=== PATIENT | male | born 1960 | race Caucasian/White ===

== ENCOUNTER 2023-07-18 15:27 | Outpatient (OUT) | payer OTHER, SELFPAY ==
[2023-07-18 16:47] LABS: Prostate Specific Antigen Dx 2.05 ng/mL (<=4.00)
== END 2023-07-18 15:28 | disposition home or self-care (01) ==
LOC: LAB 15:31
PROVIDERS: PCP Family Medicine; Visit Provider Urology
DX: C61 Malignant neoplasm of prostate (principal); N40.1 Benign prostatic hyperplasia with lower urinary tract symptoms
CPT/HCPCS: 36415; 84153

== ENCOUNTER 2024-03-30 12:50 | Outpatient (OUT) | payer OTHER, SELFPAY ==
--- OUTSIDE RECORDS SUMMARY | 2024-03-30 13:15 | XMS_ITS | CCD ---
Author Organization [facility] CliniSymd Care Team Providers Care Lens Engraver Name Role Phone PHYSICIAN, DEFAULT Unavailable Unavailable PHYSICIAN, DEFAULT Unavailable Unavailable Gertrudis Holloway Unavailable DO Jonh Nice Primary Care Provider [phone] MD Joe Langston Attending Provider Joe Langston Unavailable [phone] ANDREW, DR KRISHNA Gomes Attending Unavailable ANDREW, DR KRISHNA Gomes Admitting Unavailable ARLET, DR MCFADDEN Primary Care Unavailable ANDREW, DR KRISHNA Gomes Consulting Unavailable RIA, DR ALECIA Gomes Consulting Unavailable MESFIN HALEY Consulting Unavailable ARMAND, ZENAIDA Attending Unavailable ARMAND, ZENAIDA Admitting Unavailable ARMAND, ZENAIDA Consulting Unavailable ARLET, DR MCFADDEN Primary Care Unavailable ANDREW, DR KRISHNA Gomes Attending Unavailable ANDREW, DR KRISHNA Gomes Admitting Unavailable ARLET, DR MCFADDEN Primary Care Unavailable ANDREW, DR KRISHNA Gomes Consulting Unavailable DO Jonh Nice Primary Care Provider [phone] MD Joe Langston Attending Provider MD Sg Acosta Attending Provider [phone] NEFTALI Holloway Attending Provider Joe Langston Admitting UnavailJoe Larson Attending UnavailJonh Parr Primary Care Unavailable Joe Langston Admitting UnavailJoe Larson Attending UnavailJonh Parr Primary Care Unavailable Sg Acosta Admpearl Unavailable Sg Acosta Attending Unavailable Jonh Nice Primary Care Unavailable Gertrudis Holloway Admitting Unavailable Gertrudis Holloway Attending Unavailable Jonh Nice Primary Care Unavailable Jonh Nice Primary Care Physician [phone] JONH NICE Primary Care Physician Sg ACOSTA Attending Unavailable Sg ACOSTA Attending Unavailable Clifford Doss Admitting Unavailable Clifford Doss Attending Unavailable Clifford Doss Attending Unavailable Clifford Doss Attending Unavailable Clifford Doss Attending Unavailable Allergies Allergy Classification Reported Allergen(s) Allergy Type Date of Onset Reaction(s) Facility (8 sources) Penicillin G Benzathine; Translations: [Penicillin G] Drug allergy anaphylaxis, Unknown (qualifier value) [facility] (1 source) Penicillins Drug allergy (disorder) [facility] (1 source) Penicillins Drug allergy (disorder) 0 [facility] Medications Current Medications Medication Drug Class(es) Dates Sig (Normalized) Sig (Original) ciprofloxacin 500 mg oral tablet (4 sources) Quinolone Antimicrobial Start: 07-24-2019 take 500 mg by mouth twice daily Ciprofloxacin Hcl Active 500 MG PO Twice daily July 24, 2019 1:00am Compression stockings, 20-30mmHg, thigh 20-30mmHg (4 sources) Start: 06-06-2022 Compression stockings, 20-30mmHg, thigh 20-30mmHg externally daily as directed for 90 days May, Active lisinopril 20 mg oral tablet (11 sources) Angiotensin Converting Enzyme Inhibitor Start: 08-12-2023 take 1 tablet by mouth once daily lisinopril 20 mg Tab 20 mg, Oral, Daily, # 90 EA, Refills(s) 1, [id number], 177, cm, 08/12/23 15:41:00 EST, Height/Length Dosing, 97.9, kg, 08/12/23 15:41:00 EST, Weight Dosing Start Date: 08/12/23 Status: Ordered Start: 07-24-2019 take 20 mg by mouth once daily Lisinopril Active 20 MG PO Daily July 24, 2019 1:00am Start: 04-09-2019 lisinopril Ora l, Daily, Refills(s) 0 Start Date: 04/09/19 Status: Ordered 24 hr propranolol hydrochloride 60 mg extended release oral capsule (4 sources) beta-Adrenergic Tram Start: 07-24-2019 take 60 mg by mouth once daily Propranolol Active 60 MG PO Daily July 24, 2019 1:00am rimegepant 75 mg disintegrating oral tablet (1 source) Start: 08-12-2023 take 1 tablet by mouth once Nurtec ODT 75 mg oral tablet, disintegrating 75 mg = 1 tab(s), Oral, Once, # 1 tab(s), Refills(s) 0, samples given to patient (Rx) Start Date: 08/12/23 Status: Ordered rivaroxaban 10 mg oral tablet (11 sources) Factor Xa Inhibitor Start: 09-30-2023 take 1 tablet by mouth once daily Xarelto 10 mg oral tablet 10 mg, Oral, Daily, # 90 tab(s), Refills(s) 1, Pharmacy: [facility] #[id number], 177, cm, 08/12/23 15:41:00 EST, Height/Length Dosing, 97.9, kg, 08/12/23 15:41:00 EST, Weight Dosing Start Date: 09/30/23 Status: Ordered Start: 07-24-2019 take 1 tablet by jazzy th once daily Rivaroxaban (Xarelto) 2.5 mg Tablet Active 1 TAB PO Daily July 24, 2019 1:00am Start: 04-09-2019 Xarelto Oral, Refills(s) 0 Start Date: 04/09/19 Status: Ordered take 1 tablet by jazzy th every twenty-four hours Xarelto 10 MG 1 tablet Orally Once a day Active SUMAtriptan 100 mg oral tablet (2 sources) Serotonin-1b and Serotonin-1d Receptor Agonist Start: 09-05-2022 SUMAtriptan 100 mg Tab Refills(s) 0 Start Date: 09/05/22 Status: Ordered tamsulosin hydrochloride 0.4 mg oral capsule (11 sources) alpha-Adrenergic Tram Start: 08-05-2023 End: 07-30-2024 take 1 capsule by mouth twice daily Flomax 0.4 mg Cap 0.4 mg = 1 cap(s), Oral, BID, X 90 day(s), # 180 cap(s), Refills(s) 3, Pharmacy: [facility] #[id number], 177, cm, 08/05/23 16:06:00 EST, Height/Length Dosing, 100.1, kg, 08/05/23 16:06:00 EST, Weight Dosing Start Date: 08/05/23 Stop Date: 07/30/24 Status: Ordered Start: 10-22-2022 take 1 capsule by mo uth twice daily Flomax 0.4 mg Cap 0.4 mg = 1 cap(s), Oral, BID, # 60 caplet(s), Refills(s) 11, [facility]: [facility] #[id number], 177, cm, 09/05/22 14:01:00 EST, Height/Length Dosing, 101, kg, 09/05/22 14:01:00 EST, Weight Dosing Start Date: 10/22/22 Status: Ordered Start: 07-24-2019 take 1 tablet by jazzy once daily Tamsulosin Active 1 TAB PO Daily July 24, 2019 1:00am Tamsulosin HCl A ctive Problems Active Problems Problem Classification Problem Date Documented Date Episodic/Chronic Cancer of prostate (6 sources) Malignant neoplasm of prostate; Translations: [Malignant neoplasm of prostate] Onset: 3 Chronic Coagulation and hemorrhagic disorders (1 source) Hypercoagulability state 08-12-2023 Chronic Essential hypertension (2 sources) Essential (primary) hypertension; Translations: [Hypertensive disorder] Onset: 2 08-12-2023 Chronic Genitourinary symptoms and ill-defined conditions (3 sources) Microscopic hematuria 04-09-2019 Episodic Headache; including migraine (11 sources) Migraine aura without headache ; Translations: [Migraine with aura, not intractable, without status migrainosus] 04-09-2019 Chronic Hyperplasia of prostate (7 sources) Benign prostatic hyperplasia with lower urinary tract symptoms; Translations: [Benign prostatic hyperplasia without lower urinary tract symptoms] Onset: 2 Chronic Other diseases of veins and lymphatics (4 sources) Venous insufficiency of leg; Translations: [Venous insufficiency (chronic) (peripheral)] Episodic Other diseases of veins and lymphatics (2 sources) Venous insufficiency (chronic) (peripheral) Episodic Other diseases of veins and lymphatics (3 sources) Vascular insufficiency; Translations: [Venous insufficiency (chronic) (peripheral)] Episodic Other male genital disorders (3 sources) 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 Other screening for suspected conditions (not mental disorders or infectious disease) (7 sources) Elevated prostate specific antigen [PSA]; Translations: [Raised prostate specific antigen] Onset: 3 Episodic Other upper respiratory disease (4 sources) Sinusitis; Translations: [Allergic rhinitis, unspecified] Chronic Other upper respiratory infections (1 source) Chronic sinusitis, unspecified; Translations: [CHRONIC SINUSITIS UNSPECIFIED] Onset: 2 Chronic Phlebitis; thrombophlebitis and thromboembolism (3 sources) Deep venous thrombosis 04-09-2019 Episodic Unclassified (3 sources) COUGH, UNSPECIFIED; Translations: [COUGH, UNSPECIFIED] Onset: 2 Unclassified (1 source) CONTACT W/AND (SUSP) EXPOS COVID-19; Translations: [CONTACT W/AND (SUSP) EXPOS COVID-19] Onset: 2 Unclassified (1 source) Varicose veins of left lower extremity with pain; Translations: [Varicose veins of left lower extremity with pain] Onset: 3 Unclassified (1 source) Varicose veins of right lower extremity with pain; Translations: [Varicose veins of right lower extremity with pain] Onset: 3 Unclassified (1 source) Varicose veins of bilateral lower extremities with pain; Translations: [Varicose veins of bilateral lower extremities with pain] Onset: 2 Unclassified (3 sources) Drug therapy finding 02-08-2020 Unclassified (1 source) Patient encounter status 11-12-2023 Varicose veins of lower extremity (6 sources) Varicose veins of lower extremity; Translations: [Varicose veins of bilateral lower extremities with other complications] Episodic Past or Other Problems Problem Classification Problem Date Documented Da te Episodic/Chronic Abdominal pain (4 sources) Unspecified abdominal pain; Translations: [UNSPECIFIED ABDOMINAL PAIN] Onset: 02-14-2022 Episodic Other aftercare (1 source) Other usp (current) drug therapy; Translations: [OTH CORRECTION CURRENT DRUG THERAPY] Onset: 05-28-2022 Episodic Other aftercare (1 source) detention (current) use of anticoagulants; Translations: [CORRECTION CURRNT USE ANTICOAGULANTS] Onset: 02-15-2022 Episodic Pulmonary heart disease (1 source) Personal history of pulmonary embolism; Translations: [PERSONAL HISTORY PULMONARY EMBOLISM] Onset: 02-15-2022 Episodic Screening and history of mental health and substance abuse codes (1 source) Personal history of nicotine dependence; Translations: [PERSONAL HISTORY OF NICOTINE DEPEND] Onset: 05-28-2022 Episodic Substance-related disorders (1 source) Cannabis use, unspecified, uncomplicated; Translations: [CANNABIS USE UNS UNCOMPLICATED] Onset: 05-28-2022 Episodic Unclassified (1 source) COUGH, UNSPECIFIED; Translations: [COUGH, UNSPECIFIED] Onset: 05-24-2022 Results Test Name Value Interpretation Reference Range Facil ity Pre-Certification Formon Pre-Certification Form [id number] #1.00TIFF [facility] Pre-Certification Formon Pre-Certification Form [id number] #1.00TIFF [facility] Ambulatory Visit Summaryon 0 11-12-2023 Ambulatory Visit Summary DARIUS VALLADARES :1960 Visit Date:11/12/2023 Ambulatory Visit Instructions Your Diagnosis Physical exam HTN (hypertension) Migraine headache BMI 32.0-32.9,adult Class 1 obesity due to excess calories in adult Former smoker Elevated PSA Your Care Team Attending Physician - Romario BAR, Clifford Vincent Primary Care Physician - JONH NICE DO This Is Your Medications List lisinopril (lisinopril 20 mg Tab) rimegepant (Nurtec ODT 75 mg oral tablet, disintegrating) rivaroxaban (Xarelto 10 mg oral tablet) tamsulosin (Flomax 0.4 mg Cap) Procedures Performed Transrectal biopsy of prostate using ultrasound guidance (11/16/2022), Transrectal biopsy of prostate using ultrasound (US) guidance (07/01/2019), Transrectal biopsy of prostate using ultrasound (US) guidance (07/23/2018), Procedure on finger, Vasectomy. Discharge Vitals Temperature (Oral) 36.6 ?C Heart Rate (Peripheral) 78 Respiratory Rate 16 Blood Pressure 128/80 Height 177 cm Height 70 in Weight 100.5 kg Weight 221.1 lb BMI 32.08 What to do next Scheduled Follow-Up Appointments Saturday 11:15 AM EDT With: CHEYENNE BAR, Sg Gomes Where: [facility] [address] [place] [address]- \.br\ Medications\.br\ What How Much When Instructions\.br\ Unchanged lisinopril (lisinopril 20 mg Tab) 20 Milligram By Mouth Every day\.br\ Unchanged rimegepant (Nurtec ODT 75 mg oral tablet, disintegrating) 1 Tablets By Mouth Once\.br\ Unchanged rivaroxaban (Xarelto 10 mg oral tablet) 10 Milligram By Mouth Every day\.br\ Unchanged tamsulosin (Flomax 0.4 mg Cap) 1 Capsules By Mouth 2 times a day Duration: 90 Days\.br\ Allergies\.br\ penicillin G benzathine (Unknown)\.br\ Problems\.br\ Ongoing - Any problem that you are currently receiving treatment for.\.br\ Anticoagulated\.b r\ BPH with urinary obstruction\.br\ Deep venous thrombosis\.br\ Elevated PSA\.br\ HTN (hypertension)\.b r\ Hypercoagulable state\.br\ Microscopic hematuria\.br\ Migraine headache\.br\ Organic impotence\.br\ Physical exam\.br\ Prostate CA\.br\ Patient Survey\.br\ You may receive a survey via text or e-mail asking about your office visit. Please share your experience with us by completing your survey. We appreciate your feedback and thank you for choosing us for your care.\.br\ \.br\ [facility] CBC w/ Auto Diffon 4 Basophils/100 WBC (Bld) 0.6 % Normal 0.0-2.0 [facility] Comment on above: Performed By: #### 2 778643, [id number], 4825975, 0972508, [id number] #### [facility] [address] [place] [address] Basophils/Leukocytes Auto (Bld) [Pure # fraction] 0.1 E9/L Normal 0.0-0.2 [facility] Comment on above: Performed By: #### 2 439170, [id number], 7989960, 6114741, 36956125 #### [facility] [address] [place] [address] Eosinophils (Bld) [#/Vol] 0.6 E9/L High 0.0-0.5 [facility] Comment on above: Performed By: #### 2 243220, 07904532, 1255724, 2553029, 21741100 #### [facility] [address] [place] [address] Eosinophils/100 WBC (Bld) 6.2 % Normal 0.0-8.0 [facility] Comment on above: Performed By: #### 2 622392, 66819140, 3020990, 8910204, 27013748 #### [facility] [address] [place] [address] Erythrocyte distribution width (RBC) [Ratio] 13.3 % Normal 10.9-14.2 [facility] Comment on above: Performed By: #### 2 841067, 18261178, 2347016, 3402471, 56653982 #### [facility] [address] [place] [address] Hematocrit (Bld) [Volume fraction] 46.4 % Normal 37.7-49.0 [facility] Comment on above: Performed By: #### 2 515366, 33852433, 4720485, 6085751, 18843981 #### [facility] [address] [place] [address] Hemoglobin (Bld) [Mass/Vol] 15.9 g/dL Normal 13.5-17.5 [facility] Comment on above: Performed By: #### 2 113992, 44750717, 5595306, 6818210, 85925680 #### [facility] [address] [place] [address] Lymphocytes (Bld) [#/Vol] 1.8 E9/L Normal 1.0-4.0 [facility] Comment on above: Performed By: #### 2 874830, 51995496, 3141405, 0363735, 36633587 #### [facility] [address] [place] [address] Lymphocytes/100 WBC (Bld) 20.1 % Normal 14.0-50.0 [facility] Comment on above: Performed By: #### 2 493951, 42952621, 8680975, 5671750, 72531962 #### [facility] [address] [place] [address]46 MCH (RBC) [Entitic mass] 30.6 pg Normal 27.0-34.0 [facility] Comment on above: Performed By: #### 2 976315, 41297978, 2632436, 9674380, 98489213 #### [facility] [address] [place] [address] 15953 MCHC (RBC) [Mass/Vol] 34.3 g/dL Normal 31.4-36.0 [facility] Comment on above: Performed By: #### 2 065007, 38749514, 2318025, 0574483, 82129255 #### [facility] [address] [place] [address]89 MCV (RBC) [Entitic vol] 89.5 fL Normal 80.0-100.0 [facility] Comment on above: Performed By: #### 2 799546, 07747489, 2053838, 4350059, 80200222 #### [facility] [address] [place] [address] Monocytes (Bld) [#/Vol] 0.9 E9/L Normal 0.2-1.0 [facility] Comment on above: Performed By: #### 2 776630, 45501449, 0919151, 0525447, 75960927 #### [facility] [address] [place] [address]017 Neutrophils (Bld) [#/Vol] 5.7 E9/L Normal 2.0-7.5 [facility] Comment on above: Performed By: #### 2 992528, 58144063, 7872348, 0835229, 03164187 #### [facility] [address] [place] [address] Neutrophils/100 WBC (Bld) 63.5 % Normal 36.0-75.0 [facility] Comment on above: Performed By: #### 2 037805, 11318521, 1053808, 5357753, 83017872 #### [facility] [address] [place] [address] Platelet mean volume (Bld) [Entitic vol] 8.7 fL Normal 6.4-10.8 [facility] Comment on above: Performed By: #### 2 756317, 85811982, 6484409, 8177414, 72768700 #### [facility] [address] [place] [address] Platelets (Bld) [#/Vol] 274.0 E9/L Normal 150.0-500.0 [facility] Comment on above: Performed By: #### 2 317368, 96872898, 9489315, 4218561, 47288780 #### [facility] [address] [place] [address] 15148 RBC (Bld) [#/Vol] 5.2 E12/L Normal 4.3-5.9 [facility] Comment on above: Performed By: #### 2 087372, 14747895, 0653676, 1825190, 25475138 #### [facility] [address] [place] [address] 23893 WBC corrected for nucl RBC Auto (Bld) [#/Vol] 9.0 E9/L Normal 4.0-11.0 [facility] Comment on above: Performed By: #### 2 519397, 84790169, 9763536, 0982596, 14623956 #### [facility] [address] [place] [address] CHEMISTRYOrdered By: Mir Tesen SYSTEM on 11-12-2023 Albumin [Mass/Vol] 4.2 g/dL Normal 3.3 - 5.0 gm/dL R emisol Chem Albumin/Globulin [Mass ratio] 2.0 {ratio} Normal 1.1 - 2.2 Remisol Chem ALP [Catalytic activity/Vol] 77 [iU]/d Normal 21 - 98 Int._Unit/L [facility] Chem ALT No additional P-5'-P [Catalytic activity/Vol] 18 [iU]/d Normal 6 - 46 Int._Unit/L [facility]isol Chem Anion gap [Moles/Vol] 12 mmol/L Normal 6 - 16 mEq/L [facility] AST [Catalytic activity/Vol] 13 [iU]/d Normal 5 - 43 Int._Unit/L [facility] Bilirubin [Mass/Vol] 0.6 mg/dL Normal 0.0 - 1.1 mg/dL [facility] Calcium [Mass/Vol] 9.2 mg/dL Normal 8.9 - 11.1 mg/dL [facility] Chloride [Moles/Vol] 106 mmol/L Normal 101 - 111 mmol/ L [facility] Cholesterol [Mass/Vol] 242 mg/dL High 120 - 200 mg/dL [facility] Cholesterol in HDL [Mass/Vol] 37 mg/dL Invalid Interpretation Code [facility] Comment on above: Result Comment: '>= 60 LOW RISK' '<= 40 HIGH RISK' Cholesterol in LDL [Mass/Vol] 190 mg/dL High <=129mg/dL [facility] Cholesterol in VLDL [Mass/Vol] 41 mg/dL High 7 - 40 mg/dL [facility] CO2 [Moles/Vol] 26 mmol/L Normal 21 - 31 mmol/L Remis ol Chem Creatinine [Mass/Vol] 0.9 mg/dL Normal 0.5 - 1.3 mg/dL [facility] Chem eGFR 96 mL/min/1.73 m2 Normal >=59mL/min /1.73 m2 [facility] Globulin (S) [Mass/Vol] 2.1 g/dL Normal 1.4 - 4.0 gm/dL [facility] Glucose [Mass/Vol] 102 mg/dL Normal 55 - 199 mg/dL Re misol Chem Potassium [Moles/Vol] 3.8 mmol/L Normal 3.5 - 5.3 mmol/L [facility] Prostate specific Ag [Mass/Vol] 1.9 ng/mL Normal 0.1 - 3.5 ng/mL [facility] Comment on above: Interpretive Data: T he concentration of PSA determined by different manufacturers can vary due to differences in assay methods and reagent specificity. Values obtained from different assay methods cannot be used interchangeably. The methodology used for this result was chemiluminescence using [employer] [facility]'s Access Hybritech PSA reagent. Protein [Mass/Vol] 6.3 g/dL Normal 6.0 - 7.8 gm/dL R emisol Chem Sodium [Moles/Vol] 140 mmol/L Normal 135 - 145 mmol/L Rem[facility] Triglyceride [Mass/Vol] 203 mg/dL High <=149mg/dL [facility] Urea nitrogen [Mass/Vol] 15 mg/dL Normal 5 - 21 mg/dL Rem[facility] Urea nitrogen/Creatinine [Mass ratio] 17 mg/mg Normal 10 - 20 Remisol Chem CMPon 11-12-2023 Albumin [Mass/Vol] 4.2 g/dL Normal 3.3-5.0 [facility] Comment on above: Performed By: #### 2 052994, 94834808, 8220048, 9113100, 13570792 #### [facility] [address] [place] [address] Albumin/Globulin (S) [Mass conc ratio] 2.0 Normal 1.1-2.2 [facility] Comment on above: Performed By: #### 2 698236, 11644796, 7846873, 7473256, 64134292 #### [facility] [address] [place] [address] ALP [Catalytic activity/Vol] 77 Int._Unit/L Normal 21-98 [facility] Comment on above: Performed By: #### 2 116073, 12367087, 1651614, 2537414, 02529578 #### [facility] [address] [place] [address] ALT No additional P-5'-P [Catalytic activity/Vol] 18 Int._Unit/L Normal 6-46 [facility] Comment on above: Performed By: #### 2 008731, 68790973, 0718550, 1355963, 88797013 #### [facility] [address] [place] [address] Anion gap [Moles/Vol] 12 mmol/L Normal 6-16 [facility] Comment on above: Performed By: #### 2 055030, 20927727, 9844055, 9752878, 48104092 #### [facility] [address] [place] [address] AST [Catalytic activity/Vol] 13 Int._Unit/L Normal 5-43 [facility] Comment on above: Performed By: #### 2 398291, 39565387, 8152836, 1162470, 02994149 #### [facility] [address] [place] [address] Bilirubin [Mass/Vol] 0.6 mg/dL Normal 0.0-1.1 [facility] Comment on above: Performed By: #### 2 875400, 72102474, 6853042, 5192559, 43264705 #### [facility] [address] [place] [address] Calcium [Mass/Vol] 9.2 mg/dL Normal 8.9-11.1 [facility] Comment on above: Performed By: #### 2 442786, 23184586, 4214800, 5166286, 45067858 #### [facility] [address] [place] [address] Chloride [Moles/Vol] 106 mmol/L Normal 101-111 [facility] Comment on above: Performed By: #### 2 443838, 16770213, 8137878, 6905636, 93927227 #### [facility] [address] [place] [address] CO2 [Moles/Vol] 26 mmol/L Normal 21-31 [facility] Comment on above: Performed By: #### 2 936705, 44761516, 2927672, 5236049, 77560327 #### [facility] [address] [place] [address] Creatinine [Mass/Vol] 0.9 mg/dL Normal 0.5-1.3 [facility] Comment on above: Performed By: #### 2 826010, 57158165, 7135260, 9453366, 04684305 #### [facility] [address] [place] [address] Globulin (S) [Mass/Vol] 2.1 g/dL Normal 1.4-4.0 [facility] Comment on above: Performed By: #### 2 218754, 45147365, 0609943, 8463475, 30355363 #### [facility] [address] [place] [address] Glucose [Mass/Vol] 102 mg/dL Normal 55-199 [facility] Comment on above: Performed By: #### 2 256758, 84769489, 7346988, 0896889, 54757901 #### [facility] [address] [place] [address] Potassium [Moles/Vol] 3.8 mmol/L Normal 3.5-5.3 [facility] Comment on above: Performed By: #### 2 391631, 13522389, 0732278, 3153216, 16551871 #### [facility] [address] [place] [address] Protein [Mass/Vol] 6.3 g/dL Normal 6.0-7.8 [facility] Comment on above: Performed By: #### 2 622404, 02920691, 9336991, 8848752, 97389829 #### [facility] [address] [place] [address] Sodium [Moles/Vol] 140 mmol/L Normal 135-145 [facility] Comment on above: Performed By: #### 2 [id number], [id number] #### [facility] Laboratory [address] [place] [address] Urea nitrogen [Mass/Vol] 15 mg/dL Normal 5-21 [facility] Comment on above: Performed By: #### 2 [id number], [id number] #### [facility] [address] [place] [address] Urea nitrogen/Creatinine [Mass ratio] 17 No Units Normal 10-20 [facility] Comment on above: Performed By: #### 2 [id number], [id number] #### [facility] [address] [place] [address] Family Medicine Office/Clini c Noteon 11-12-2023 Family Medicine Office/Clinic Note HPI Staff Darius is a 63 year old female presenting for 2 month follow up htn, migraines [facility], health assessment Patient is here for follow up on hypertension. How often are you checking your blood pressure? Doesnt check BP at home What are your average readings? N/A, Not checking at home Yearly BMP: _ Headaches: Time of Onset: had one on saturday but it passed[facility] _ _ _ Typical headache frequency: 8-9 days a month Prior headache work-up: not addressed _ _ questions/concerns: needs the [facility] refilled History of Present Illness - See staff HPI. Physical Exam Vitals & Measurements T: 36.6 ?C(Oral) HR: 78(Peripheral) RR: 16 BP: 128/80 SpO2: 98% HT: 70 in HT: 177 cm WT: 100.5 kg WT: 221.1 lb BMI: 32.08 General: alert, no acute distress ENMT: oral mucosa moist, Cardiovascular: regular rate and rhythm, normal peripheral perfusion Respiratory: Lungs CTA, respirations non labored Extremities: no deformity, no trauma Neurological: oriented x 4, LOC appropriate for age, CN II-XII intact, motor strength equal & normal bilaterally, speech normal Abdomen: Soft, Nontender, Non-distended, + BS Assessment/Plan 1. Physical exam (Z00.00: Encounter for general adult medical examination without abnormal findings) Anticipatory guidance given. Discussed diet and exercise. Discussed immunizations. Ordered: CBC w/ Auto Diff Comprehensive Metabolic Panel Lipid Panel PSA Total 2. HTN (hypertension) (I10: Essential (primary) hypertension) At goal today - Continue on meds as before Ordered: CBC w/ Auto Diff Comprehensive Metabolic Panel Lipid Panel PSA Total 3. Migraine headache (G43.909: Migraine, unspecified, not intractable, without status migrainosus) - Continue meds as before. Ordered: CBC w/ Auto Diff Comprehensive Metabolic Panel Lipid Panel PSA Total 4. BMI 32.0-32.9,adult (Z68.32: Body mass index [BMI] 32.0-32.9, adult) - BMI education given Ordered: CBC w/ Auto Diff Comprehensive Metabolic Panel Lipid Panel PSA Total 5. Class 1 obesity due to excess calories in adult (E66.09: Other obesity due to excess calories) - Diet and exercise advised Ordered: CBC w/ Auto Diff Comprehensive Metabolic Panel Lipid Panel PSA Total 6. Former smoker (Z87.891: Personal history of nicotine dependence) - Please continue to not smoke Ordered: CBC w/ Auto Diff Comprehensive Metabolic Panel Lipid Panel PSA Total 7. Elevated PSA (R97.20: Elevated prostate specific antigen [PSA]) - Will recheck today. Ordered: CBC w/ Auto Diff Comprehensive Metabolic Panel Lipid Panel PSA Total Follow-up No qualifying data available Problem List/Past Medical History Ongoing Anticoagulated BPH with urinary obstruction Deep venous thrombosis Elevated PSA HTN (hypertension) Hypercoagulable state Microscopic hematuria Migraine headache Organic impotence Physical exam Prostate CA Historical No qualifying data Procedure/Surgical History Transrectal biopsy of prostate using ultrasound guidance (11/16/2022), Transrectal biopsy of prostate using ultrasound (US) guidance (07/01/2019), Transrectal biopsy of prostate using ultrasound (US) guidance (07/23/2018), Procedure on finger, Vasectomy. Medications Flomax 0.4 mg Cap, 0.4 mg= 1 cap(s), Oral, BID, 3 refills lisinopril 20 mg Tab, 20 mg, Oral, Daily, 1 refills Nurtec ODT 75 mg oral tablet, disintegrating, 75 mg= 1 tab(s), Oral, Once Xarelto 10 mg oral tablet, 10 mg, Oral, Daily, 1 refills Allergies penicillin G benzathine (Unknown) Social History Alcohol Current, Liquor, 1-2 times per month, 04/17/2019 Tobacco - Denies Tobacco Use, 04/17/2019 Former smoker, quit more than 30 days ago Tobacco Use:. Smokeless tobacco user within last 30 days Smokeless Tobacco Use:. Cigarettes, Household tobacco concerns: No. Yes, 11/12/2023 Family History Diabetes: Mother. Hypertension: Mother and Father. Immunizations Vaccine Date Status Comments SARS-CoV-2 (COVID-19) mRNA BNT-162b2 vax 06/22/2021 Recorded SARS-CoV-2 (COVID-19) mRNA BNT-162b2 vax 11/08/2020 Recorded SARS-CoV-2 (COVID-19) mRNA BNT-162b2 vax 10/20/2020 Recorded SARS-CoV-2 (COVID-19) mRNA BNT-162b2 vax 2020 Recorded pt does not have his card and doesn't remember dates of vaccination Normal [facility] Comment on above: Result Comment: Elec tronically Signed By: Romario BAR, Clifford Everettbr\Date and Time Signed: 11/12/23 15:33 EDT HEMATOLOGYOrdered By: SYSTEM SYSTEM on 11-12-2023 Basophils/100 WBC (Bld) 0.6 % Normal 0.0 - 2.0 % Remisol Heme Basophils/Leukocytes Auto (Bld) [Pure # fraction] 0.1 E9/L Normal 0.0 - 0.2 E9/L Remisol Heme Eosinophils (Bld) [#/Vol] 0.6 E9/L High 0.0 - 0.5 E9/L Remisol Heme Eosinophils/100 WBC (Bld) 6.2 % Normal 0.0 - 8.0 % Remisol Heme Erythrocyte distribution width (RBC) [Ratio] 13.3 % Normal 10.9 - 14.2 % Remisol Heme Hematocrit (Bld) [Volume fraction] 46.4 % Normal 37.7 - 49.0 % Remisol Heme Hemoglobin (Bld) [Mass/Vol] 15.9 g/dL Normal 13.5 - 17.5 gm/dL Remisol Heme Lymphocytes (Bld) [#/Vol] 1.8 E9/L Normal 1.0 - 4.0 E9/L Remisol Heme Lymphocytes/100 WBC (Bld) 20.1 % Normal 14.0 - 50.0 % Remisol Heme MCH (RBC) [Entitic mass] 30.6 pg Normal 27.0 - 34.0 pg Remisol Heme MCHC (RBC) [Mass/Vol] 34.3 g/dL Normal 31.4 - 36.0 gm/dL Remisol Heme MCV (RBC) [Entitic vol] 89.5 fL Normal 80.0 - 100.0 fL Remisol Heme Monocytes (Bld) [#/Vol] 0.9 E9/L Normal 0.2 - 1.0 E9/L Remisol Heme Monocytes/100 WBC (Bld) 9.6 % Normal 4.0 - 14.0 % Remisol Heme Neutrophils (Bld) [#/Vol] 5.7 E9/L Normal 2.0 - 7.5 E9/L Remisol Heme Neutrophils/100 WBC (Bld) 63.5 % Normal 36.0 - 75.0 % Remisol Heme Platelet mean volume (Bld) [Entitic vol] 8.7 fL Normal 6.4 - 10.8 fL Remisol Heme Platelets (Bld) [#/Vol] 274.0 E9/L Normal 150.0 - 500.0 E9/L Remisol Heme RBC (Bld) [#/Vol] 5.2 E12/L Normal 4.3 - 5.9 E12/L Re misol Heme WBC corrected for nucl RBC Auto (Bld) [#/Vol] 9.0 E9/L Normal 4.0 - 11.0 E9/L Remisol Heme Lipid Panelon 11-12-2023 Cholesterol [Mass/Vol] 242 mg/dL High 120-200 [facility] Comment on above: Performed By: #### 2 [id number], [id number] #### [facility] [address] [place] [address] Cholesterol in HDL [Mass/Vol] 37 mg/dL Invalid Interpretation Code [facility] Comment on above: Result Comment: '>= 60 LOW RISK' '<= 40 HIGH RISK' Performed By: #### 2 [id number], [id number], [id number] #### [facility] [address] [place] [address] Cholesterol in LDL [Mass/Vol] 190 mg/dL High <=129 [facility] Comment on above: Performed By: #### 2 [id number], [id number] #### [facility] [address] [place] [address] Cholesterol in VLDL [Mass/Vol] 41 mg/dL High 7-40 [facility] Comment on above: Performed By: #### 2 [id number], [id number], [id number] #### [facility] [address] [place] [address] Triglyceride [Mass/Vol] 203 mg/dL High <=149 [facility] Comment on above: Performed By: #### 2 [id number], [id number], [id number], [id number], [id number] #### [facility] [address] [place] [address] PSA Totalon 11-12-2023 Prostate specific Ag [Mass/Vol] 1.9 ng/mL Normal 0.1-3.5 [facility] Comment on above: Result Comment: The concentration of PSA determined by different manufacturers can vary due to differences in assay methods and reagent specificity. Values obtained from different assay methods cannot be used interchangeably. The methodology used for this result was chemiluminescence using [employer] PSA reagent. Performed By: #### 2 [id number], [id number], [id number] #### [facility] [address] [place] [address] eGFRon 11-12-2023 eGFR 96 mL/min/1.73 m2 Normal >=59 [facility] Comment on above: Order Comment: Order added by Discern Expert. Performed By: #### 2 [id number], [id number] #### [facility] [address] [place] [address] Family Medicine Office/Clini c Noteon 08-12-2023 Family Medicine Office/Clinic Note HPI Staff Mccoy is a 62 year old male presenting to [facility] Establish Care: History:DVT, prostate CA, migraines Any previous diagnosis: History of seeing any specialist: dr acosta [facility] When was your last doctors visit: Last provider: Dr Nice Any recent labs: none Health Maintenance UTD: Colonoscopy: due 2 years PSA: [facility] in Jul 2023 flu: refused Acute: Current issues/complaints: none, just needs to establish History of Present Illness Here to establish care. No issues. Needs a new doctor. Review of Systems PHQ Score Initial Depression Screen Score: 0 SCORE Physical Exam Vitals & Measurements T: 36.8 ?C(Oral) HR: 86(Peripheral) RR: 16 BP: 114/80 SpO2: 97% HT: 70 in HT: 177 cm WT: 97.9 kg WT: 215.38 lb BMI: 31.25 General: alert, no acute distress ENMT: oral mucosa moist, Cardiovascular: regular rate and rhythm, normal peripheral perfusion Respiratory: Lungs CTA, respirations non labored Extremities: no deformity, no trauma Neurological: oriented x 4, LOC appropriate for age, CN II-XII intact, motor strength equal & normal bilaterally, speech normal Abdomen: Soft, Nontender, Non-distended, + BS Assessment/Plan 1. HTN (hypertension) (I10: Essential (primary) hypertension) - At goal at this time. - No issues at this time. 2. Deep venous thrombosis (I82.409: Acute embolism and thrombosis of unspecified deep veins of unspecified lower extremity) - On Xarelto - Had 5 years ago 3. Migraine headache (G43.909: Migraine, unspecified, not intractable, without status migrainosus) - Will switch to Nurtec to see if this is better . 4. Prostate CA (C61: Malignant neoplasm of prostate) - Sees Dr. Acosta 5. Hypercoagulable state (D68.59: Other primary thrombophilia) - Continue on Xarelto 6. BMI 31.0-31.9,adult (Z68.31: Body mass index [BMI] 31.0-31.9, adult) - BMI education given 7. Smokeless tobacco use (Z72.0: Tobacco use) - Please do not use Tobacco Products. 8. Former smoker (Z87.891: Personal history of nicotine dependence) - Please continue to not smoke 9. Class 1 obesity due to excess calories in adult (E66.09: Other obesity due to excess calories) - Diet and exercise advised. Orders: lisinopril, 20 mg, Oral, Daily, # 90 EA, Refills(s) 1, Pharmacy: [id number], 177, cm, 08/12/23 15:41:00 EST, Height/Length Dosing, 97.9, kg, 08/12/23 15:41:00 EST, Weight Dosing rimegepant, 75 mg = 1 tab(s), Oral, Once, # 1 tab(s), Refills(s) 0, samples given to patient (Rx) Follow-up No qualifying data available Problem List/Past Medical History Ongoing Anticoagulated BPH with urinary obstruction Deep venous thrombosis Elevated PSA HTN (hypertension) Hypercoagulable state Microscopic hematuria Migraine headache Organic impotence Prostate CA Historical No qualifying data Procedure/Surgical History Transrectal biopsy of prostate using ultrasound guidance (11/16/2022), Transrectal biopsy of prostate using ultrasound (US) guidance (07/01/2019), Transrectal biopsy of prostate using ultrasound (US) guidance (07/23/2018), Procedure on finger, Vasectomy. Medications Flomax 0.4 mg Cap, 0.4 mg= 1 cap(s), Oral, BID, 3 refills lisinopril 20 mg Tab, 20 mg, Oral, Daily, 1 refills Nurtec ODT 75 mg oral tablet, disintegrating, 75 mg= 1 tab(s), Oral, Once Xarelto, 10 mg, Oral, Daily Allergies penicillin G benzathine (Unknown) Social History Alcohol Current, Liquor, 1-2 times per month, 04/17/2019 Tobacco - Denies Tobacco Use, 04/17/2019 Former smoker, quit more than 30 days ago Tobacco Use:. Smokeless tobacco user within last 30 days Smokeless Tobacco Use:. Cigarettes, Household tobacco concerns: No. Yes, 08/12/2023 Family History Diabetes: Mother. Hypertension: Mother and Father. Immunizations Vaccine Date Status Comments SARS-CoV-2 (COVID-19) mRNA BNT-162b2 vax 06/22/2021 Recorded SARS-CoV-2 (COVID-19) mRNA BNT-162b2 vax 11/08/2020 Recorded SARS-CoV-2 (COVID-19) mRNA BNT-162b2 vax 10/20/2020 Recorded SARS-CoV-2 (COVID-19) mRNA BNT-162b2 vax 2020 Recorded pt does not have his card and doesn't remember dates of vaccination Normal [facility] Comment on above: Result Comment: Elec tronically Signed By: Romario BAR, Clifford Hicks.[email or web address]\Date and Time Signed: 08/12/23 16:03 EST Ambulatory Visit Summaryon 0 08-05-2023 Ambulatory Visit Summary DARIUS VALLADARES :1960 Visit Date:08/05/2023 Ambulatory Visit Instructions Your Diagnosis Prostate CA BPH with urinary obstruction Your Care Team Attending Physician - Sg ACOSTA MD Primary Care Physician - JONH NICE DO This Is Your Medications List tamsulosin (Flomax 0.4 mg Cap) Contact prescribing physician if questions or concerns lisinopril rivaroxaban (Xarelto) sumatriptan (SUMAtriptan 100 mg Tab) Procedures Performed Transrectal biopsy of prostate using ultrasound guidance (11/16/2022), Transrectal biopsy of prostate using ultrasound (US) guidance (07/01/2019), Transrectal biopsy of prostate using ultrasound (US) guidance (07/23/2018), Procedure on finger, Vasectomy. Discharge Vitals Heart Rate (Peripheral) 82 Respiratory Rate 16 Blood Pressure 134/88 Height 177 cm Height 70 in Weight 100.1 kg Weight 220.22 lb BMI 31.95 What to do next You Need to Schedule the Following Appointments Follow Up with CHEYENNE BAR, Sg Gomes, URL When: Comments: 6 mos w/ PSA Where: [facility] [address] , [place] [address]- [id number] Medications What How Much When Instructions Changed tamsulosin (Flomax 0.4 mg Cap) 1 Capsules By Mouth 2 times a day Duration: 90 Days Pickup at [facility] #[id number] Unchanged lisinopril By Mouth Every day Contact prescribing physician if questions or concerns Unchanged rivaroxaban (Xarelto) By Mouth Contact prescribing physician if questions or concerns Unchanged sumatriptan (SUMAtriptan 100 mg Tab) Contact prescribing physician if questions or concerns Pharmacy Information [facility] #[id number]: [address], [place] [id number] [phone] Allergies penicillin G benzathine (Unknown) Problems Ongoing - Any problem that you are currently receiving treatment for. Anticoagulated BPH with urinary obstruction Deep venous thrombosis Elevated PSA Microscopic hematuria Migraine headache Organic impotence Prostate CA Patient Survey You may receive a survey via text or e-mail asking about your office visit. Please share your experience with us by completing your survey. We appreciate your feedback and thank you for choosing us for your care. Education Materials Prostate Cancer The prostate is a small gland that produces fluid that makes up semen (seminal fluid). It is located below the bladder in men, in front of the rectum. Prostate cancer is the abnormal growth of cells in the prostate gland. What are the causes? The exact cause of this condition is not known. What increases the risk? You are more likely to develop this condition if: ? You are 65 years of age or older. ? You have a family history of prostate cancer. ? You have a family history of breast and ovarian cancer. ? You have genes that are passed from parent to child (inherited), such as BRCA1 and BRCA2. ? You have Winters syndrome. men and men of descent are diagnosed with prostate cancer at higher rates than other men. The reasons for this are not well understood and are likely due to a combination of genetic and environmental factors. What are the signs or symptoms? Symptoms of this condition include: ? Problems with urination. This may include: ? A weak or interrupted flow of urine. ? Trouble starting or stopping urination. ? Trouble emptying the bladder all the way. ? The need to urinate more often, especially at night. ? Blood in urine or semen. ? Persistent pain or discomfort in the lower back, lower abdomen, or hips. ? Trouble getting an erection. ? Weakness or numbness in the legs or feet. How is this diagnosed? This condition can be diagnosed with: ? A digital rectal exam. For this exam, a health care provider inserts a gloved finger into the rectum to feel the prostate gland. ? A blood test called a prostate-specific antigen (PSA) test. ? A procedure in which a sample of tissue is taken from the prostate and checked under a microscope (prostate biopsy). ? An imaging test called transrectal ultrasonography. Once the condition is diagnosed, tests will be done to determine how far the cancer has spread. This is called staging the cancer. Staging may involve imaging tests, such as a bone scan, CT scan, PET scan, or MRI. Stages of prostate cancer The stages of prostate cancer are as follows: ? Stage 1 (I). At this stage, the cancer is found in the prostate only. The cancer is not visible on imaging tests, and it is usually found by accident, such as during prostate surgery. ? Stage 2 (II). At this stage, the cancer is more advanced than it is in stage 1, but the cancer has not spread outside the prostate. ? Stage 3 (III). At this stage, the cancer has spread beyond the outer layer of the prostate to nearby tissues. The cancer may be found in the seminal vesicles, which are near the fernanda (more content not included)... Normal [facility] Patient Educationon 08-05-19 Patient Education Oncology Prostate Cancer The prostate is a small gland that produces fluid that makes up semen (seminal fluid). It is located below the bladder in men, in front of the rectum. Prostate cancer is the abnormal growth of cells in the prostate gland. What are the causes? The exact cause of this condition is not known. What increases the risk? You are more likely to develop this condition if: ? You are 65 years of age or older. ? You have a family history of prostate cancer. ? You have a family history of breast and ovarian cancer. ? You have genes that are passed from parent to child (inherited), such as BRCA1 and BRCA2. ? You have Winters syndrome. men and men of descent are diagnosed with prostate cancer at higher rates than other men. The reasons for this are not well understood and are likely due to a combination of genetic and environmental factors. What are the signs or symptoms? Symptoms of this condition include: ? Problems with urination. This may include: ? A weak or interrupted flow of urine. ? Trouble starting or stopping urination. ? Trouble emptying the bladder all the way. ? The need to urinate more often, especially at night. ? Blood in urine or semen. ? Persistent pain or discomfort in the lower back, lower abdomen, or hips. ? Trouble getting an erection. ? Weakness or numbness in the legs or feet. How is this diagnosed? This condition can be diagnosed with: ? A digital rectal exam. For this exam, a health care provider inserts a gloved finger into the rectum to feel the prostate gland. ? A blood test called a prostate-specific antigen (PSA) test. ? A procedure in which a sample of tissue is taken from the prostate and checked under a microscope (prostate biopsy). ? An imaging test called transrectal ultrasonography. Once the condition is diagnosed, tests will be done to determine how far the cancer has spread. This is called staging the cancer. Staging may involve imaging tests, such as a bone scan, CT scan, PET scan, or MRI. Stages of prostate cancer The stages of prostate cancer are as follows: ? Stage 1 (I). At this stage, the cancer is found in the prostate only. The cancer is not visible on imaging tests, and it is usually found by accident, such as during prostate surgery. ? Stage 2 (II). At this stage, the cancer is more advanced than it is in stage 1, but the cancer has not spread outside the prostate. ? Stage 3 (III). At this stage, the cancer has spread beyond the outer layer of the prostate to nearby tissues. The cancer may be found in the seminal vesicles, which are near the bladder and the prostate. ? Stage 4 (IV). At this stage, the cancer has spread to other parts of the body, such as the lymph nodes, bones, bladder, rectum, liver, or lungs. Prostate cancer grading Prostate cancer is also graded according to how the cancer cells look under a microscope. This is called the Amos score and the total score can range from 6?10, indicating how likely it is that the cancer will spread (metastasize) to other parts of the body. The higher the score, the greater the likelihood that the cancer will spread. ? [place] 6 or lower: This indicates that the cancer cells look similar to normal prostate cells (well differentiated). ? [place] 7: This indicates that the cancer cells look somewhat similar to normal prostate cells (moderately differentiated). ? Amos 8, 9, or 10: This indicates that the cancer cells look very different than normal prostate cells (poorly differentiated). How is this treated? Treatment for this condition depends on several factors, including the stage of the cancer, your age, personal preferences, and your overall health. Talk with your health care provider about treatment options that are recommended for you. Common treatments include: ? Observation for early stage prostate cancer (active surveillance). This involves having exams, blood tests, and in some cases, more biopsies. For some men, this is the only treatment needed. ? Surgery. Types of surgeries include: ? Open surgery (radical prostatectomy). In this surgery, a larger incision is made to remove the prostate. ? A laparoscopic radical prostatectomy. This is a surgery to remove the prostate and lymph nodes through several small incisions. It is often referred to as a minimally invasive surgery. ? A robotic radical prostatectomy. This is laparoscopic surgery to remove the prostate and lymph nodes with the help of robotic arms that are controlled by the surgeon. ? Cryoablation. This is surgery to freeze and destroy cancer cells. ? Radiation treatment. Types of radiation treatment include: ? External beam radiation. This type aims beams of radiation from outside the body at the prostate to destroy cancerous cells. ? Brachytherapy. This type uses radioactive needles, seeds, wires, or tubes that are implanted into the prostate gland. Like external be (more content not included)... Normal [facility] Urology Office/Clinic Noteon 08-05-2023 Urology Office/Clinic Note Chief Complaint prostate cancer (ACTIVE SURVEILLANCE) HPI Staff 8 month f/u with PSA. Previous dx of prostate cancer (ACTIVE SURVEILLANCE) and BPH with urinary obstruction. Tamsulosin 0.4mg BID. Current PSA done 07/18/23 is 2.05 and previous done 08/27/22 was 2.84. Dysuria: no Incomplete bladder emptying: no Hematuria: no Frequency: pt states that he tries to void every 2 hours Urgency: no Nocturia: does not get up Stream: slower once in a while but no straining Leaking: no Post void dripping: no Wearing pads/ Depends: no Urge incontinence: no Stress incontinence: no Incontinence without Sensory Awareness: no Abdominal pain: no Flank pain: no Sexual complaints: no History of Present Illness Tests reviewed: reviewed UA, PSA I have reviewed the previous health record information and history for this patient from Dr. Acosta. I have reviewed and verified the staff HPI to be accurate for this encounter. Review of Systems PHQ Score Initial Depression Screen Score: 0 SCORE ROS - Provider Constitutional: denies weight loss, denies hot flashes. Eyes: denies eye problems. Gastrointestinal: denies nausea, denies vomiting. Cardiovascular: denies chest pain or angina. Integumentary: no dryness Musculoskeletal: denies musculoskeletal symptoms. ENMT: denies otolaryngeal symptoms. Respiratory: no shortness of breath. Heme/Lymph: denies easy bleeding tendency, denies easy bruising tendency. Psychiatric: no confusion, no anxiety. Genitourinary: See HPI. Physical Exam Vitals & Measurements HR: 82(Peripheral) RR: 16 BP: 134/88 HT: 70 in HT: 177 cm WT: 100.1 kg WT: 220.22 lb BMI: 31.95 General Appearance: alert, no distress, well nourished, well developed male. Genitourinary: normal scrotum, normal testes, normal urethra, normal epididymis, normal vas deferens/spermatic cord. Flank Pain: none. Bladder: nonpalpable. Prostate: normal prostate, estimated weight 40 gms, no hard nodule observed. Assessment/Plan 1. Prostate CA (C61: Malignant neoplasm of prostate) ACTIVE SURVEILLANCE. PSA: 03/2019 - 1.77 12/2019 - 1.45 07/2020 - 1.60 01/2021 - 1.78 08/2021 - 1.84 08/27/22 - 2.84 07/18/23 - 2.05 Originally diagnosed TRUS/bx 07/29/18 - [place] 6 (3+3) x 1 core and VEL x 1 core. Repeat bx 07/2019 - Negative. Prostate MRI [facility] - Prostate volume 29mL. No evidence of high-grade prostate malignancy or local mets. TRUS/bx 11/16/22 - Path showed [place] 6 (3+3), grade group 1, in one core on R. Focal chronic prostatitis. BOBY: 40g, benign Discussed PSA level w/ pt, slightly decreased from prior. Will continue to monitor. -F/u in 6 mos w/ PSA 2. BPH with urinary obstruction (N40.1: Benign prostatic hyperplasia with lower urinary tract symptoms) Taking Flomax 0.4 mg bid. UA today negative for infection. Not voicing any urinary complaints. -Cont Flomax wo changes. Refills sent. Follow-up With When Contact Information [place], Sg Gomes, URL [facility] [address], [place] [address]- [phone] Additional Instructions: 6 mos w/ PSA Patient Education Prostate Cancer I, Jewels Victoria, personally scribed for Dr. Acosta on 08/05/2023 16:37:27. . Documentation recorded by the scribe, Jewels Victoria, accurately reflects the services(s) I performed and decisions made by me. Authenticated by Dr. Acosta on 08/05/2023 16:39:40. Problem List/Past Medical History Ongoing Anticoagulated BPH with urinary obstruction Deep venous thrombosis Elevated PSA Microscopic hematuria Migraine headache Organic impotence Prostate CA Historical No qualifying data Procedure/Surgical History Transrectal biopsy of prostate using ultrasound guidance (11/16/2022), Transrectal biopsy of prostate using ultrasound (US) guidance (07/01/2019), Transrectal biopsy of prostate using ultrasound (US) guidance (07/23/2018), Procedure on finger, Vasectomy. Medications Flomax 0.4 mg Cap, 0.4 mg= 1 cap(s), Oral, BID, 11 refills lisinopril, Oral, Daily SUMAtriptan 100 mg Tab Xarelto, Oral Allergies penicillin G benzathine (Unknown) Social History Alcohol Current, Liquor, 1-2 times per month, 04/17/2019 Tobacco - Denies Tobacco Use, 04/17/2019 Former smoker, quit more than 30 days ago Tobacco Use:. Cigarettes, Household tobacco concerns: No. Yes, 11/23/2022 Family History Diabetes: Mother. Hypertension: Mother and Father. Immunizations Vaccine Date Status Comments SARS-CoV-2 (COVID-19) mRNA BNT-162b2 vax 06/22/2021 Recorded SARS-CoV-2 (COVID-19) mRNA BNT-162b2 vax 11/08/2020 Recorded SARS-CoV-2 (COVID-19) mRNA BNT-162b2 vax 10/20/2020 Recorded SARS-CoV-2 (COVID-19) mRNA BNT-162b2 vax 2020 Recorded pt does not have his card and doesn't remember dates of vaccination Lab Results Ambulatory Point of Care Results Bilirubin Urine Dipstick: Negative (08/05/23 15:52:00) Blood Urine Dipstick: Trace- (more content not included)... Normal [facility] Comment on above: Result Comment: Elec tronically Signed By: Sg ACOSTA MD\.br\Date and Time Signed: 08/05/23 16:39 EST\.br\Electronically Co-Signed By: Jewels Victoria\.br\Date and Time Co-Signed: 08/05/23 16:37 EST Lab Reportson 07-19-2023 Lab Reports [id number]# 1.00TIFF Nathaly [facility] US venous duplex LE LTon US venous duplex LE LT [facility] [place] [address] Ultrasound Report Signed Patient: Darius Valladares MR#: [id number] 948 : 1960 Acct:[id number] Age/Sex: 62 / M ADM Date: 10/11/22 Loc: [facility] ER Room: Type: [facility] Attending Dr: Gertrudis Holloway LOBBY ATTENDANT-C Ordering Provider: Gertrudis Holloway APRN Date of Service: 10/11/22 US/US venous duplex LE LT: I83.812 Copies to: Gertrudis Holloway APRN LEFT LOWER EXTREMITY VENOUS DUPLEX INDICATION: Post procedure surveillance study. Unilateral left lower extremity venous duplex Doppler study was obtained utilizing B-mode, color- flow and spectral Doppler. FINDINGS: The left common femoral, femoral, and popliteal veins showed adequate compressibility, color-flow and augmentation. The left posterior tibial and peroneal veins were compressible. US/US venous duplex LE LT IMPRESSION: NO EVIDENCE OF DEEP VENOUS THROMBOSIS IN THE LEFT LOWER EXTREMITY. The left greater saphenous vein was ablated 3.6 cm from the saphenofemoral junction, as expected. Impression dictated by: Joe Langston MD10/15/2022 3:13 PM Dictation Location: [place] [address] Tech: Karol Mullen Transcribed By: CHELSEA 10/15/221512 Dictated By: Joe Langston MD 10/15/22 151 Signed By: 10/15/22 151 [facility] [place] [facility] Creatinine (Bld) [Mass/Vol]O rdered By: Sg Acosta on 10-01-2022 Creatinine [Mass/Vol] 1.1 mg/dL 0.6-1.3 [facility] Comment on above: ER/ESD physician is notified/shown all ISTAT results.Critical values may be confirmed by laboratory testing ifdeemed necessary by ER attending doctor. MR dalia downing/w conon 10-01 MR prostate wo/w con [facility] Main [place] [id number] MRI Report Signed Patient: Darius Valladares MR#: [id number] 948 : 1960 Acct:[id number] Age/Sex: 62 / M ADM Date: 10/01/22 Loc: Room: Type: [facility] Attending Dr: Sg Acosta MD Copies to: Sg Acosta MD Ordering Provider: Sg Acosta MD Date of Service: 10/01/22 MR/MR prostate wo/w con: C61 EXAMINATION: MR prostate wo/w con HISTORY: Prostate cancer. Elevated PSA. COMPARISON: NONE TECHNIQUE: Multiparametric imaging of the prostate gland was performed with IV contrast. FINDINGS: Prostate Dimensions: 4.4 x 3.0 x 4.2 cm Prostate Volume: 29 mL. Peripheral Zone: Heterogenous inT2 signal suggestive of prior prostatitis. No suspicious T2 or ADC map abnormality is identified to suggest prostate malignancy. Central/Transitional Zone: BPH changes. Seminal Vesicles: Unremarkable Neurovascular bundles: Unremarkable. Lymphadenopathy: No evidence of lymphadenopathy. Bladder: No focal lesion. Bowel: The visualized bowel is without acute abnormality. Peritoneal Cavity: No free fluid. Bones: No suspicious bony lesion. MR/MR prostate wo/w con IMPRESSION: No MRI evidence of high-grade prostate malignancy or local metastatic disease. Impression dictated by: Florentin Flowers Jr., D.O.10/01/2022 3:00 PM Dictation Location: [place] [address] Transcribed By: [facility] 10/01/22 1500 Dictated By: Florentin Flowers Jr, DO 10/01/22 1447 Signed By: 10/01/22 1500 Normal [facility] US venous duplex LE RTon US venous duplex LE [facility] Main [address] [address] Ultrasound Report Signed Patient: Darius Valladares MR#: [id number] 948 : 1960 Acct:[id number] Age/Sex: 61 / M ADM Date: 07/16/22 Loc: [facility] ER Room: Type: [facility] CLI Attending Dr: Joe Langston MD Ordering Provider: Joe Langston MD Date of Service: 07/16/22 US/US venous duplex LE RT: I83.811, S/P VENASEAL Copies to: Joe Langston MD RIGHT LOWER EXTREMITY VENOUS DUPLEX INDICATION: Surveillance study after vein procedure Unilateral right lower extremity venous duplex Doppler study was obtained utilizing B-mode, color- flow and spectral Doppler. FINDINGS: The right common femoral, femoral, and popliteal veins showed adequate compressibility, color-flow and augmentation. The right posterior tibial and peroneal veins were compressible, as well as proximal greater saphenous vein. US/US venous duplex LE RT IMPRESSION: NO EVIDENCE OF DEEP VENOUS THROMBOSIS IN THE RIGHT LOWER EXTREMITY Impression dictated by: Joe Langston MD07/18/2022 2:24 PM Dictation [facility] Tech: Priscilla Denney Transcribed By: CHELSEA 07/18/22 1424 Dictated By: Joe Langston MD 07/18/22 1424 Signed By: 07/18/22 1424 Normal [facility] US venous duplex LE BIon US venous duplex LE [facility] [place] [address] Ultrasound Report Signed Patient: Darius Valladares MR#: [id number] 948 : 1960 Acct:[id number] Age/Sex: 61 / M ADM Date: 06/06/22 Loc: [facility] ER Room: Type: [facility] CLI Attending Dr: Joe Langston MD Ordering Provider: Joe Langston MD Date of Service: 06/06/22 US/US venous duplex LE BI: I83.813 Copies to: Joe Langston MD BILATERAL LOWER EXTREMITY VENOUS DUPLEX INDICATION: Symptomatic varicose veins PROCEDURE: Color-flow duplex scanning is used to interrogate the deep venous system of the right and left lower extremities. The common femoral vein, femoral vein and popliteal vein show good compressibility with normal proximal and distal augmentation. The calf veins are compressible. US/US venous duplex LE BI IMPRESSION: NO EVIDENCE FOR DEEP VEIN THROMBOSIS OR PROXIMAL SUPERFICIAL THROMBOPHLEBITIS IN THE RIGHT OR LEFT LOWER EXTREMITY. Severe reflux was identified in the right lower extremity. Both the deep and superficial veins were positive for reflux. The patient had greater than 5 second reflux in the common femoral vein, saphenofemoral junction, greater saphenous vein, superficial femoral vein and popliteal vein. The left lower extremity patient had severe reflux in the common femoral vein and saphenofemoral junction. The patient had continuous flow in the greater saphenous veins initial femoral vein and the lesser saphenous vein. The greater saphenous vein was patent from the groin to the ankle, bilaterally and was severely enlarged, bilaterally with the right being worse than the left. Very large perforators were identified, bilaterally. Impression dictated by: Joe Langston MD06/06/2022 1:09 PM Dictation Location: [facility] Tech: Darlingdennis Albarado Transcribed By: CHELSEA 06/06/22 1309 Dictated By: Joe Langston MD 06/06/22 1307 Signed By: 06/06/22 1309 [facility] [place] [facility] Covid-19 PCR (CVDTB)on 05-02 SARS-CoV-2 (COVID-19) RNA YOUSUF+probe Ql (Unsp spec) Not detected Normal NOT DETECTED [facility] Comment on above: Result Comment: When diagnostic testing is negative, the possibility of a false negative should be considered in the context of a patient's recent exposures and the presence of clinical signs and symptoms consistent with SARS-CoV-2. This test is not yet approved or cleared by the [place] FDA. When there are no FDA-approved or cleared tests available, and other criteria are met, FDA can make tests available under an emergency access mechanism called an Emergency Use Authorization (EUA). The EUA for this test is supported by the [employer] Greeter of Health and Human Service's declaration that circumstances exist to justify the emergency use of in vitro diagnostics for the detection and/or diagnosis of the virus that causes COVID-19. This EUA will remain in effect for the duration of the COVID-19 declaration justifying emergency of IVDs, unless it is terminated or revoked by the FDA (after which the test may no longer be used). Performed By: #### [facility] #### [facility] [address] [place] [address] Dr. Abe Paris INFLUENZA A AND B AGon 05-24 INFLUENZA A AG Negative Normal NEGATIVE SEE COMMENT [facility] Comment on above: Performed By: #### P TT, PT #### [facility] [address] [place] [address] Dr. Abe Paris INFLUENZA B AG Negative Normal NEGATIVE SEE COMMENT [facility] Comment on above: Performed By: #### P TT, PT #### [facility] [address] [place] [address] Dr. Abe Paris INTERNAL CONTROLS Within Normal Limits Normal Wi thin Normal Limits [facility] Comment on above: Performed By: #### P TT, PT #### [facility] [address] [place] [address] Dr. Abe Paris CBC AUTO DIFFon 02-14-2022 BASO # 0.1 103/ul Normal 0.0-0.1 [facility] Comment on above: Performed By: #### P TT, PT #### [facility] [address] [place] [address] Dr. Abe Paris Basophils/100 WBC (Bld) 0.5 % Normal 0.2-2.0 [facility] Comment on above: Performed By: #### P TT, PT #### [facility] [address] [place] [address] Dr. Abe Paris EO # 0.4 103/ul Normal 0.0-0.7 [facility] Comment on above: Performed By: #### P TT, PT #### [facility] [address] [place] [address] Dr. Abe Paris Eosinophils/100 WBC (Bld) 3.4 % Normal 0.9-7.0 [facility] Comment on above: Performed By: #### P TT, PT #### [facility] [address] [place] [address] Dr. Abe Paris Erythrocyte distribution width (RBC) [Ratio] 12.7 % Normal 11.0-15.0 [facility] Comment on above: Performed By: #### P TT, PT #### [facility] [address] [place] [address] Dr. Abe Paris Hematocrit (Bld) [Volume fraction] 41.7 % Critically low 42.0-54.0 [facility] Comment on above: Performed By: #### P TT, PT #### [facility] [address] [place] [address] Dr. Abe Paris Hemoglobin (Bld) [Mass/Vol] 14.2 g/dL Normal 14.0-18.0 [facility] Comment on above: Performed By: #### P TT, PT #### [facility] [address] [place] [address] Dr. Abe Paris IG # 0.04 10e3/ul Critically high 0.00-0.03 [facility] Comment on above: Performed By: #### P TT, PT #### [facility] [address] [place] [address] Dr. Abe Paris IG % 0.4 % Normal 0.0-0.5 [facility] Comment on above: Performed By: #### P TT, PT #### [facility] [address] [place] [address] Dr. Abe Paris LYMPH # 1.9 103/ul Normal 1.2-3.8 [facility] Comment on above: Performed By: #### P TT, PT #### [facility] [address] [place] [address] Dr. Abe Paris Lymphocytes/100 WBC (Bld) 18.2 % Critically low 20.5-60.0 [facility] Comment on above: Performed By: #### P TT, PT #### [facility] [address] [place] [address] Dr. Abe Paris MANUAL DIFF REQ NO Normal [facility] Comment on above: Performed By: #### P TT, PT #### [facility] [address] [place] [address] Dr. Abe Paris MCH (RBC) [Entitic mass] 30.3 pg Normal 25.9-34.0 [facility] Comment on above: Performed By: #### P TT, PT #### [facility] [address] [place] [address] [address] Abe Paris MCHC (RBC) [Mass/Vol] 34.1 g/dL Normal 29.9-35.2 [facility] Comment on above: Performed By: #### P TT, PT #### [facility] [address] [place] [address] Dr. Abe Paris MCV (RBC) [Entitic vol] 88.9 fL Normal 80.0-94.0 [facility] Comment on above: Performed By: #### P TT, PT #### [facility] [address] [place] [address] Dr. Abe Paris MONO # 1.1 103/ul Critically high 0.3-0.8 [facility] Comment on above: Performed By: #### P TT, PT #### [facility] [address] [place] [address] Dr. Abe Paris Monocytes/100 WBC (Bld) 10.4 % Normal 1.7-12.0 [facility] Comment on above: Performed By: #### P TT, PT #### [facility] [address] [place] [address] Dr. Abe Paris NEUT # 6.9 103/ul Critically high 1.4-6.5 [facility] Comment on above: Performed By: #### P TT, PT #### [facility] [address] [place] [address] Dr. Abe Paris Neutrophils/100 WBC (Bld) 67.1 % Normal 43.0-75.0 [facility] Comment on above: Performed By: #### P TT, PT #### [facility] [address] [place] [address] Dr. Abe Paris Platelet mean volume (Bld) [Entitic vol] 9.7 fL Normal 9.5-13.5 [facility] Comment on above: Performed By: #### P TT, PT #### [facility] [address] [place] [address] Dr. Abe Paris PLT 241 103/ul Normal 150-450 [facility] Comment on above: Performed By: #### P TT, PT #### [facility] [address] [place], [place] [address] Dr. Abe Paris RBC 4.69 106/ul Critically low 4.70-6.10 [facility] Comment on above: Performed By: #### P TT, PT #### [facility] [address] [place], [place] [address] Dr. Abe Paris WBC 10.3 103/ul Normal 4.0-11.0 [facility] Comment on above: Performed By: #### P TT, PT #### [facility] [address] [place], [place] [address] ABD/PELVIS WO CONon 02-14 CT ABD/PELVIS WO CON EXAMINATION: CT ABD/PELVIS WO CON HISTORY: CALCULUS OF KIDNEY , right flank pain, nausea COMPARISON: CT abdomen and pelvis 09/20/2019 TECHNIQUE: Axial, Coronal, and Sagittal images were created without IV contrast. Dose reduction techniques were achieved by using automated exposure control and/or adjustment of mA and/or kV according to patient size and/or use of iterative reconstruction technique. FINDINGS: LUNG BASES: No visible pulmonary or pleural disease. LIVER: No enlargement, atrophy, suspicious density, or significant focal lesion. BILIARY: No dilatation or calcification. PANCREAS: No lesion, fluid collection, or abnormal duct dilatation. SPLEEN: No enlargement or focal lesion. ADRENALS: Stable appearance of a few small low-density nodules within left adrenal gland. KIDNEYS: Stable parapelvic cysts. No mass, obstruction, or calcification. BOWEL/MESENTERY: No visible mass, obstruction, or bowel wall thickening. Normal appendix. AORTA/VASCULAR: No aneurysm or dissection. RETROPERITONEUM: No mass or adenopathy. LYMPH NODES: No adenopathy. URINARY BLADDER: No visible focal wall thickening, lesion, or calculus. PELVIC ORGANS: No visible mass. Pelvic organs appropriate for patient age. ABDOMINAL WALL: No mass or hernia. BONES: No bony lesion or fracture. OTHER: Negative. IMPRESSION: 1. No urinary tract calculi or obstructive uropathy. 2. Unremarkable bowel. Normal appendix. 3. No acute or suspicious findings to account for patient's symptoms. Electronically authenticated by: ALECIA ROLLINS Date: 2022-02-14 07:49 Normal [facility] D-DIMERon 02-14-2022 D-DIMER 0.19 mg/L FEU Normal <=0.59 [facility] Comment on above: Performed By: #### D DIM #### [facility] [address] [place] [address] Dr. Abe Paris D-DIMER COMMENTS SEE BELOW Normal [facility] Comment on above: Result Comment: Incr eases in D-Dimer concentration observed with thromboembolic events can be variable due to localization, size, and age of the thrombus. Therefore, a thromboembolic event cannot be diagnosed with certainty on the basis of the reference range. D-Dimers may also be elevated for a variety of disorders including: advanced age, , coronary disease, cancer, liver disease, infection, inflammation, hematoma, DIC, trauma, post-surgery, diabetes, thrombolytic or anticoagulant therapy, stress, and generalized hospitalization. Performed By: #### D DIM #### [facility] [address] [place] [address] Dr. Abe Paris ER URINE PROFILEon 2 Bilirubin Ql (U) SMALL Abnormal NEGATIVE [facility] Comment on above: Performed By: #### Vaughn MIGUEL UMICRO #### [facility] [address] [place] [address] Dr. Abe Paris Clarity (U) CLEAR Normal CLEAR [facility] Comment on above: Performed By: #### E RUR, UMICRO #### [facility] [address] [place] [address] Dr. Abe Paris Color (U) YELLOW Normal YELLOW [facility] Comment on above: Performed By: #### E RUR, UMICRO #### [facility] [address] [place] [address] Dr. Abe Paris ERUAHD A micrscopic examination will be performed if indicated. Normal [facility] Comment on above: Performed By: #### E RUR, UMICRO #### [facility] [address] [place] [address] Dr. Abe Paris Glucose Ql (U) Negative Normal NEGATIVE [facility] Comment on above: Performed By: #### E RUR, UMICRO #### [facility] [address] [place] [address] Dr. Abe Paris Hemoglobin Ql (U) TRACE-LYSED Abnormal NEGATIVE [facility] Comment on above: Performed By: #### STEPHY MONREALRO #### [facility] [address] [place] [address] Dr. Abe Paris Ketones Ql (U) Negative Normal NEGATIVE [facility] Comment on above: Performed By: #### STEPHY MONREALRO #### [facility] [address] [place] [address] Dr. Abe Paris LEUKOCYTES Negative Normal NEGATIVE [facility] Comment on above: Performed By: #### STEPHY MONREALRO #### [facility] [address] [place] [address] Dr. Abe Paris Nitrite Ql (U) Negative Normal NEGATIVE [facility] Comment on above: Performed By: #### STEPHY MONREALRO #### [facility] [address] [place] [address] Dr. Abe Paris pH (U) 5.5 [pH] Normal 5-9 [facility] Comment on above: Performed By: #### STEPHY MONREALRO #### [facility] [address] [place] [address] Dr. Abe Paris SPEC GRAVITY >=1.030 Abnormal 1.005-<=1.025 [facility] Comment on above: Performed By: #### STEPHY MONREALRO #### [facility] [address] [place] [address] Dr. Abe Paris UA PROTEIN Negative Normal NEGATIVE/ TRACE [facility] Comment on above: Performed By: #### STEPHY MONREALRO #### [facility] [address] [place] [address] Dr. Abe Paris UR MICRO IND INDICATED Normal [facility] Comment on above: Performed By: #### STEPHY MONREALRO #### [facility] [address] [place] [address] Dr. Abe Paris Urobilinogen Qn (U) 0.2 {Scott'U}/dL Normal 0.2 - 1. 0 [facility] Comment on above: Performed By: #### E SKYLA MIGUEL #### [facility] [address] [address] [address] Abe Paris PROF 14(COMP METB)on 022 Albumin [Mass/Vol] 3.7 g/dL Normal 3.4-5.0 [facility] Comment on above: Performed By: #### H TIAN, CMP #### [facility] [address] [address] [address] Abe Paris Albumin/Globulin [Mass ratio] 1.4 {ratio} Normal [facility] Comment on above: Performed By: #### H TIAN, CMP #### [facility] [address] [place] [address] Dr. Abe Paris ALP [Catalytic activity/Vol] 81 U/L Normal 46-116 [facility] Comment on above: Performed By: #### H TIAN, CMP #### [facility] [address] [place] [address] Dr. Abe Paris ALT [Catalytic activity/Vol] 20 U/L Normal 16-63 [facility] Comment on above: Performed By: #### H TIAN, CMP #### [facility] [address] [place] [address] Dr. Abe Paris Anion gap [Moles/Vol] 14.4 mmol/L Normal [facility] Comment on above: Performed By: #### H TIAN, CMP #### [facility] [address] [place] [address] Dr. Abe Paris AST [Catalytic activity/Vol] 10 U/L Critically low 15-37 [facility] Comment on above: Performed By: #### H GEMMAPN, CMP #### [facility] [address] [place] [address] Dr. Abe Paris Bilirubin [Mass/Vol] 0.6 mg/dL Normal 0.2-1.0 [facility] Comment on above: Performed By: #### H TIAN, CMP #### [facility] [address] [address] [address] Abe Paris Calcium [Mass/Vol] 8.7 mg/dL Normal 8.5-10.1 [facility] Comment on above: Performed By: #### H STROPN, CMP #### [facility] [address] [address] [address] Abe Paris Chloride [Moles/Vol] 105 mmol/L Normal 98-107 [facility] Comment on above: Performed By: #### H STROPN, CMP #### [facility] [address] [address] [address] Abe Paris CO2 [Moles/Vol] 24.4 mmol/L Normal 21.0-32.0 [facility] Comment on above: Performed By: #### H STROPN, CMP #### [facility] [address] [address] [address] Abe Paris Creatinine [Mass/Vol] 1.07 mg/dL Normal 0.70-1.30 [facility] Comment on above: Performed By: #### H STROPN, CMP #### [facility] [address] [place] [address] Dr. Abe Paris EGFR-AF NIUEAN >60 Normal >=60 [facility] Comment on above: Performed By: #### H STROPN, CMP #### [facility] [address] [address] [address] Abe Paris EGFR-NON AF NIUEAN >60 Normal >=60 [facility] Comment on above: Performed By: #### H STROPN, CMP #### [facility] [address] [place] [address] Dr. Abe Paris Globulin (S) [Mass/Vol] 2.7 g/dL Normal [facility] Comment on above: Performed By: #### H STROPN, CMP #### [facility] [address] [address] [address] Abe Paris Glucose [Mass/Vol] 108 mg/dL Critically high 74-106 [facility] Comment on above: Performed By: #### H STROPN, CMP #### [facility] [address] [place] [address] Dr. Abe Paris Potassium [Moles/Vol] 3.8 mmol/L Normal 3.5-5.1 [facility] Comment on above: Performed By: #### H TIAN, CMP #### [facility] [address] [place] [address] Dr. Abe Paris Protein [Mass/Vol] 6.4 g/dL Normal 6.4-8.2 [facility] Comment on above: Performed By: #### H TIAN, CMP #### [facility] [address] [place] [address] Dr. Abe Paris Sodium [Moles/Vol] 140 mmol/L Normal 136-145 [facility] Comment on above: Performed By: #### H TIAN, CMP #### [facility] [address] [place] [address] Dr. Abe Paris Urea nitrogen [Mass/Vol] 15.0 mg/dL Normal 7.0-18.0 [facility] Comment on above: Performed By: #### H TIAN, CMP #### [facility] [address] [place] [address] Dr. Abe Paris Urea nitrogen/Creatinine [Mass ratio] 14.0 mg/mg Normal [facility] Comment on above: Performed By: #### H TIAN, CMP #### [facility] [address] [place] [address] Dr. Abe Paris PROTIMEon 02-14-2022 INR Coag (PPP) [Relative time] 1.03 {INR} Normal [facility] Comment on above: Performed By: #### P TT, PT #### [facility] [address] [place] [address] Dr. Abe Paris INR GUIDELINES SEE BELOW Normal [facility] Comment on above: Result Comment: ISHAAN RED INR: 2.0 - 3.0 CONDITIONS NOT LISTED BELOW 2.5 - 3.5 FOR PROSTHETIC HEART VALVE REPLACEMENT 2.5 - 3.5 RECURRENT THROMBOSIS Performed By: #### P TT, PT #### [facility] [address] [place] [address] Dr. Abe Paris PT Coag (PPP) [Time] 11.1 s Normal 9.0-11.6 [facility] Comment on above: Performed By: #### P TT, PT #### [facility] [address] [place] [address] Dr. Abe Paris PTTon 02-14-2022 aPTT Coag (Bld) [Time] 28.1 s Normal 22.3-36.2 [facility] Comment on above: Performed By: #### P TT, PT #### [facility] [address] [place] [address] Dr. Abe Paris TROPONIN, HIGH SENSITIVITYon 02-14-2022 HSTROP 5.8 pg/mL Normal 4.0-76.1 [facility] Comment on above: Result Comment: CUT- OFF POINTS HAVE BEEN ESTABLISHED BASED ON THE FOURTH UNIVERSAL DEFINITIONS OF MYOCARDIAL INFARCTION. THE UPPER REFERENCE LIMIT (URL) OF TROPONIN, DEFINED THE 99TH PERCENTILE OF cTnI DISTRIBUTION IN A REFERENCE POPULATION, HAS BEEN CONFIRMED THE DECISION THRESHOLD FOR [place] DIAGNOSIS. Performed By: #### H STROPN, CMP #### [facility] [address] [place] [address] Dr. Abe Paris URINE MICROSCOPIC ONLYon BACTERIA NONE SEEN Normal NONE SEEN [facility] Comment on above: Performed By: #### Vaughn MIGUEL UMICRO #### [facility] [address] [place] [address] Dr. Abe Paris Bacteria identified Cx Nom (U) NOT INDICATED Normal [facility] Comment on above: Performed By: #### Vaughn MIGUEL UMICRO #### [facility] [address] [place] [address] Dr. Abe Paris CAST NONE SEEN Normal NONE SEEN [facility] Comment on above: Performed By: #### E MYRIAM UMICRO #### [facility] [address] [place] [address] Dr. Abe Paris Crystals LM Nom (Urine sed) NONE SEEN Normal NONE SEEN [facility] Comment on above: Performed By: #### E MYRIAM UMICRO #### [facility] [address] [place] [address] Dr. Abe Paris Epithelial cells LM Ql (Urine sed) FEW Abnormal NONE SEEN /RARE [facility] Comment on above: Performed By: #### E RUR, UMICRO #### [facility] [address] [address] [address] Abe Paris MUCOUS NONE SEEN Normal NONE SEEN [facility] Comment on above: Performed By: #### E RUR, UMICRO #### [facility] [address] [address] [address] Abe Paris RBC 2-5 Abnormal 0-2 [facility] Comment on above: Performed By: #### E RUR, UMICRO #### [facility] [address] [address] [address] Abe Paris WBC NONE SEEN Normal NONE SEEN [facility] Comment on above: Performed By: #### E RUR, UMICRO #### [facility] [address] [place] [address] Dr. Abe Paris XR CHEST 1 Von 02-14-2022 XR CHEST 1 V EXAMINATION: XR CHEST 1 V HISTORY: CHEST PAIN, UNSPECIFIED ; right flank pain, nausea COMPARISON: No relevant comparison available. FINDINGS: LUNGS: No significant pulmonary parenchymal abnormalities. VASCULATURE: No increased pulmonary vasculature. PLEURA: No pneumothorax, effusion, or pleural thickening. CARDIAC: No cardiomegaly or cardiac silhouette abnormality. MEDIASTINUM: No visible mass or adenopathy. BONES: No fracture or visible bone lesion. OTHER: Negative. IMPRESSION: 1. No acute cardiopulmonary process. Electronically authenticated by: ALECIA ROLLINS Date: 2022-02-14 07:05 Normal [facility] Vital Signs Date Time Vital Sign Value Performing Clinician Facility 08-05-2023 15:53-0500 Blood Pressure Location Sg ACOSTA [facility] 08-05-2023 15:53-0500 Diastolic blood pressure 88 mm[Hg] Sg ACOSTA [facility] 08-05-2023 15:53-0500 Heart rate 82 /min Sg ACOSTA [facility] 08-05-2023 15:53-0500 Respiratory rate 16 /min Sgdylan ACOSTA [facility] 08-05-2023 15:53-0500 Systolic blood pressure 134 mm[Hg] Sgdylan ACOSTA [facility] 11-23-2022 11:28-0400 Blood Pressure Location Sgdylan ACOSTA [facility] 11-23-2022 11:28-0400 Diastolic blood pressure 80 mm[Hg] Sg ACOSTA [facility] 11-23-2022 11:28-0400 Heart rate 68 /min Sgdylan ACOSTA [facility] 11-23-2022 11:28-0400 Respiratory rate 16 /min Sgdylan ACOSTA [facility] 11-23-2022 11:28-0400 Systolic blood pressure 130 mm[Hg] Sg ACOSTA [facility] 10-31-2022 12:45-0400 Body height 179.07 cm Gertrudis Holloway Other [employer] Other 10-31-2022 12:45-0400 Body mass index (BMI) [Ratio] 31.54 kg/m2 Gertrudis Holloway Other [employer] Other 10-31-2022 12:45-0400 Body temperature 97.8 [degF] Gertrudis Holloway Other [employer] Other 10-31-2022 12:45-0400 Body weight 101.15 kg Gertrudis Holloway Other [employer] Other 10-31-2022 12:45-0400 Diastolic blood pressure 68 mm[Hg] Gertrudis Holloway Other [employer] Other 10-31-2022 12:45-0400 SaO2% (BldA) [Mass fraction] 98 % Gertrudis Holloway Other [employer] Other 10-31-2022 12:45-0400 Systolic blood pressure 112 mm[Hg] Gertrudis Holloway Other [employer] Other 10-01-2022 10:25-0400 Body height 177.8 cm DO [employer] Work Phone: [facility] 10-01-2022 10:25-0400 Body weight 100.69 kg DO [employer] Work Phone: [facility] 06-06-2022 11:00-0500 Body height 179.07 cm Gertrudis Holloway Other [employer] Other 06-06-2022 11:00-0500 Body mass index (BMI) [Ratio] 31.54 kg/m2 Gertrudis Holloway Other [employer] Other 06-06-2022 11:00-0500 Body temperature 97.8 [degF] Gertrudis Holloway Other [employer] Other 06-06-2022 11:00-0500 Body weight 101.15 kg Gertrudis Holloway Other [employer] Other 06-06-2022 11:00-0500 Diastolic blood pressure 68 mm[Hg] Gertrudis Holloway Other [employer] Other 06-06-2022 11:00-0500 SaO2% (BldA) [Mass fraction] 96 % Gertrudis Holloway Other [employer] Other 06-06-2022 11:00-0500 Systolic blood pressure 110 mm[Hg] Gertrudis Holloway Other [employer] Other Encounters Encounter Date Encounter Type Care Provider Facility Start: 05-14-2024 ambulatory Clifford Doss Facility :[facility] Start: 04-13-2024 ambulatory Sg ACOSTA Facili ty:[facility] Start: 11-12-2023 End: 11-12-2023 Lab Drop off Clifford Doss [facility] Start: 11-12-2023 End: 11-12-2023 ambulatory Clifford Doss [place] Start: 09-30-2023 ambulatory Sg ACOSTA Facility :[facility] [place] Start: 08-12-2023 End: 08-12-2023 ambulatory Clifford Doss Facility:[facility] [place] Start: 08-05-2023 End: 08-05-2023 ambulatory Sg ACOSTA Facility:[facility] [place] Start: 08-05-2023 End: 08-05-2023 Patient encounter procedure Sg ACOSTA [facility] Start: 11-23-2022 End: 11-23-2022 Patient encounter procedure Sg ACOSTA [facility] Start: 10-31-2022 End: 10-31-2022 ambulatory Gertrudis Jewel Other [employer] Other Start: 10-31-2022 Patient encounter procedure Gertrudis Jewel [facility] Start: 10-11-2022 End: 10-11-2022 ambulatory Gertrudis R Luis Albertosoledad Facility:[facility] Start: 10-11-2022 End: 10-11-2022 ambulatory DO Jonh House Work Phone: [facility] Work Phone: Start: 10-11-2022 End: 10-11-2022 Patient encounter procedure DO Jonh House Work Phone: [facility]-Ultrasound [facility] Start: 10-03-2022 (EVLT) EVLT saphenou s vein ablation Joe Langston [facility] Surgery Start: 10-03-2022 End: 10-03-2022 ambulatory [address] Other [facility] [employer] Other Start: 10-01-2022 End: 10-01-2022 ambulatory Sg Acosta Facility:[facility] Start: 10-01-2022 End: 10-01-2022 ambulatory DO Jonh House Work Phone: [facility] Work Phone: Start: 10-01-2022 End: 10-01-2022 Patient encounter procedure DO Jonh House Work Phone: [facility]-MRI [facility] [place] Work Phone: Start: 08-27-2022 End: 08-28-2022 ambulatory ZENAIDA ACUNA Facility: Start: 07-16-2022 End: 07-16-2022 ambulatory Joe Langston Facility:[facility] Start: 07-16-2022 End: 07-16-2022 ambulatory DO Jonh House Work Phone: [facility] Work Phone: Start: 07-16-2022 End: 07-16-2022 Patient encounter procedure DO Jonh House Work Phone: [facility]-Ultrasound [facility] Start: 07-11-2022 (EVLT) EVLT saphenou s vein ablation Joe Langston [facility] Vascular Surgery Start: 07-11-2022 End: 07-11-2022 ambulatory Joe Langston Other [employer] Other Start: 06-06-2022 Follow-up encounter Gertrudis Medeiros [facility] Start: 06-06-2022 End: 06-06-2022 ambulatory DO [employer] Work Phone: [employer] Other Start: 06-06-2022 End: 06-06-2022 Patient encounter procedure DO [employer] Work Phone: [facility]-Ultrasound [facility] Start: 05-24-2022 End: 05-24-[address] KRISHNA MORALES Facility:[facility] Start: 02-14-2022 End: 02-14-[address] KRISHNA MORALES Facility:[facility] Start: 11-05-2017 End: 11-06-2017 Ambulatory DEFAULT PHYSICIAN Facility:[facility] Procedures Date Procedure Procedure Detail Performing Clinician Start: 11-16-2022 Transrectal biopsy o f prostate using ultrasound guidance [employer] Start: 10-01-2022 MR prostate wo/w con DO [employer] Work Phone: Start: 08-27-[address] KRISHNA FREDERICK Comment on above: Performed By: #### P TT, PT #### [facility] [address] [place] [address] Dr. Abe Paris Start: 07-16-2022 Duplex scan of lower limb veins DO [employer] Work Phone: Start: 06-06-2022 Duplex scan of lower limb veins DO [employer] Work Phone: Start: 07-01-2019 Transrectal biopsy o f prostate using ultrasound guidance [employer] Start: 07-23-2018 Transrectal biopsy o f prostate using ultrasound guidance [employer] Procedure on finger Sg ACOSTA Vasectomy Sg ACOSTA Plan of Treatment Date Care Activity Detail Author Start: 10-11-2022 Duplex scan of lower limb veins US venous duplex LE LT [facility] Start: 10-11-2022 US Lower extremity v ein - left [facility] Start: 07-16-2022 Duplex scan of lower limb veins US venous duplex LE RT [facility] Start: 07-16-2022 US Lower extremity v ein - right [facility] Immunizations Immunization Date Immunization Notes Care Provider Fa cili 06-22-2021 SARS-CoV-2 (COVID-19 ) mRNA BNT-162b2 vax Sg ACOSTA [facility] 11-08-2020 SARS-CoV-2 (COVID-19 ) mRNA BNT-162b2 vax Sg ACOSTA [facility] 10-20-2020 SARS-CoV-2 (COVID-19 ) mRNA BNT-162b2 vax Sg ACOSTA [facility] 07-01-2020 SARS-CoV-2 (COVID-19 ) mRNA BNT-162b2 vax Sg ACOSTA [facility] Comment on above: Result Comment: pt d oes not have his card and doesn't remember dates of vaccination Payers Date Payer Category Payer Unknown [id number] 2022 Self-pay [id number] 1960 Unknown [id number] 2.16.84 [id number] 1960 Unknown [id number] 2.16.84 [id number] 1961 Unknown [id number] 2.16.84 [id number] 1960 Unknown [id number] 2.16.8 [id number] 1961 Unknown [id number] 2.16.8 [id number] 1961 Unknown [id number] 2.16.8 [id number] 1961 Unknown [id number] 2.16.8 [id number] 1961 Unknown [id number] 2.16.8 [id number] 1961 Unknown [id number] 2.16.8 [id number] 1959 Unknown [id number] 2.16. [id number] 1959 Unknown [id number] Unknown Unknown [id number] 2.16.8 [id number] Unknown [id number] 2.16.8 [id number] Unknown [id number] 2.16.8 [id number] Unknown [id number] 2.16.8 [id number] Social History Date Type Detail Facility Unknown if ever smoked [employer] Other Sex Assigned At [facility] Start: 07-24-2019 End: 11-12-2023 Tobacco smoking status GAIS Ex-smoker (finding) [facility] Start: 1960 Sex Assigned At Male F [facility] Tobacco smoking status Smokeless tobacco user within last [address] [facility] [place] Functional Status Date Assessment Result Facility 08-05-2023 Functional Status N/A [facility] 11-23-2022 Functional Status N/A [facility] Clinical Notes 06-06-2022 to 08-05-2023 Note Date & Type Note Facility 08-05-2023 Hospital Discharg e instructions Patient Education 08/05/2023 16:26:40 Prostate Cancer Prostate Cancer The prostate is a small gland that produces fluid that makes up semen (seminal fluid). It is located below the bladder in men, in front of the rectum. Prostate cancer is the abnormal growth of cells in the prostate gland. What are the causes? The exact cause of this condition is not known. What increases the risk? You are more likely to develop this condition if: You are 65 years of age or older. You have a family history of prostate cancer. You have a family history of breast and ovarian cancer. You have genes that are passed from parent to child (inherited), such as BRCA1 and BRCA2. You have Winters syndrome. men and men of descent are diagnosed with prostate cancer at higher rates than other men. The reasons for this are not well understood and are likely due to a combination of genetic and environmental factors. What are the signs or symptoms? Symptoms of this condition include: Problems with urination. This may include: ?A weak or interrupted flow of urine. ?Trouble starting or stopping urination. ?Trouble emptying the bladder all the way. ?The need to urinate more often, especially at night. Blood in urine or semen. Persistent pain or discomfort in the lower back, lower abdomen, or hips. Trouble getting an erection. Weakness or numbness in the legs or feet. How is this diagnosed? This condition can be diagnosed with: A digital rectal exam. For this exam, a health care provider inserts a gloved finger into the rectum to feel the prostate gland. A blood test called a prostate-specific antigen (PSA) test. A procedure in which a sample of tissue is taken from the prostate and checked under a microscope (prostate biopsy). An imaging test called transrectal ultrasonography. Once the condition is diagnosed, tests will be done to determine how far the cancer has spread. This is called staging the cancer. Staging may involve imaging tests, such as a bone scan, CT scan, PET scan, or MRI. Stages of prostate cancer The stages of prostate cancer are as follows: Stage 1 (I). At this stage, the cancer is found in the prostate only. The cancer is not visible on imaging tests, and it is usually found by accident, such as during prostate surgery. Stage 2 (II). At this stage, the cancer is more advanced than it is in stage 1, but the cancer has not spread outside the prostate. Stage 3 (III). At this stage, the cancer has spread beyond the outer layer of the prostate to nearby tissues. The cancer may be found in the seminal vesicles, which are near the bladder and the prostate. Stage 4 (IV). At this stage, the cancer has spread to other parts of the body, such as the lymph nodes, bones, bladder, rectum, liver, or lungs. Prostate cancer grading Prostate cancer is also graded according to how the cancer cells look under a microscope. This is called the [place] score and the total score can range from 6 10, indicating how likely it is that the cancer will spread (metastasize) to other parts of the body. The higher the score, the greater the likelihood that the cancer will spread. [place] 6 or lower: This indicates that the cancer cells look similar to normal prostate cells (well differentiated). Amos 7: This indicates that the cancer cells look somewhat similar to normal prostate cells (moderately differentiated). Amos 8, 9, or 10: This indicates that the cancer cells look very different than normal prostate cells (poorly differentiated). How is this treated? Treatment for this condition depends on several factors, including the stage of the cancer, your age, personal preferences, and your overall health. Talk with your health care provider about treatment options that are recommended for you. Common treatments include: Observation for early stage prostate cancer (active surveillance). This involves having exams, blood tests, and in some cases, more biopsies. For some men, this is the only treatment needed. Surgery. Types of surgeries include: ?Open surgery (radical prostatectomy). In this surgery, a larger incision is made to remove the prostate. ?A laparoscopic radical prostatectomy. This is a surgery to remove the prostate and lymph nodes through several small incisions. It is often referred to as a minimally invasive surgery. ?A robotic radical prostatectomy. This is laparoscopic surgery to remove the prostate and lymph nodes with the help of robotic arms that are controlled by the surgeon. ?Cryoablation. This is surgery to freeze and destroy cancer cells. Radiation treatment. Types of radiation treatment include: ?External beam radiation. This type aims beams of radiation from outside the body at the prostate to destroy cancerous cells. ?Brachytherapy. This type uses radioactive needles, seeds, wires, or tubes that are implanted into the prostate gland. Like external beam radiation, brachytherapy destroys cancerous cells. An advantage is that this type of radiation limits the damage to surrounding tissue and has fewer side effects. Chemotherapy. This treatment kills cancer cells or stops them from multiplying. It kills both cancer cells and normal cells. Targeted therapy. This treatment uses medicines to kill cancer cells without damaging normal cells. Hormone treatment. This treatment involves taking medicines that act on testosterone, one of the male hormones, by: ?Stopping your body from producing testosterone. ?Blocking testosterone from reaching cancer cells. Follow these instructions at home: Lifestyle Do not use any products that contain nicotine or tobacco. These products include cigarettes, chewing tobacco, and vaping devices, such as e-cigarettes. If you need help quitting, ask your health care provider. Eat a healthy diet. To do this: ?Eat foods that are high in fiber. These include beans, whole grains, and fresh fruits and vegetables. ?Limit foods that are high in fat and sugar. These include fried or sweet foods. Treatment for prostate cancer may affect sexual function. If you have a partner, continue to have intimate moments. This may include touching, holding, hugging, and caressing your partner. Get plenty of sleep. Consider joining a support group for men who have prostate cancer. Meeting with a support group may help you learn to manage the stress of having cancer. General instructions Take ikfi-fut-hljxhws and prescription medicines only as told by your health care provider. If you have to go to the hospital, notify your cancer specialist (oncologist). Keep all follow-up visits. This is important. Where to find more information [place] [employer]: www.cancer.org [place] [employer]: www.cancer.net National Cancer [place]: www.cancer.gov Contact a health care provider if: You have new or increasing trouble urinating. You have new or increasing blood in your urine. You have new or increasing pain in your hips, back, or chest. Get help right away if: You have weakness or numbness in your legs. You cannot control urination or your bowel movements (incontinence). You have chills or a fever. Summary The prostate is a small gland that is involved in the production of semen. It is located below a man's bladder, in front of the rectum. Prostate cancer is the abnormal growth of cells in the prostate gland. Treatment for this condition depends on the stage of the cancer, your age, personal preferences, and your overall health. Talk with your health care provider about treatment options that are recommended for you. Consider joining a support group for men who have prostate cancer. Meeting with a support group may help you learn to manage the stress of having cancer. This information is not intended to replace advice given to you by your health care provider. Make sure you discuss any questions you have with your health care provider. Document Revised: 09/13/2021 Document Reviewed: 09/13/2021 [employer] Patient Education 2022 [employer]. Follow Up Care 11/23/2022 12:35:31 With:CHEYENNE BAR, Sg Gomes, URL Address: [facility] [address] , [place] [address]- [phone] When: Unknown Comments:6 mos w/ [facility] Hospital Discharg e instructions Patient Education 11/23/2022 12:20:43 Prostate Cancer Prostate Cancer The prostate is a small gland that produces fluid that makes up semen (seminal fluid). It is located below the bladder in men, in front of the rectum. Prostate cancer is the abnormal growth of cells in the prostate gland. What are the causes? The exact cause of this condition is not known. What increases the risk? You are more likely to develop this condition if: You are 65 years of age or older. You have a family history of prostate cancer. You have a family history of breast and ovarian cancer. You have genes that are passed from parent to child (inherited), such as BRCA1 and BRCA2. You have Winters syndrome. men and men of descent are diagnosed with prostate cancer at higher rates than other men. The reasons for this are not well understood and are likely due to a combination of genetic and environmental factors. What are the signs or symptoms? Symptoms of this condition include: Problems with urination. This may include: ?A weak or interrupted flow of urine. ?Trouble starting or stopping urination. ?Trouble emptying the bladder all the way. ?The need to urinate more often, especially at night. Blood in urine or semen. Persistent pain or discomfort in the lower back, lower abdomen, or hips. Trouble getting an erection. Weakness or numbness in the legs or feet. How is this diagnosed? This condition can be diagnosed with: A digital rectal exam. For this exam, a health care provider inserts a gloved finger into the rectum to feel the prostate gland. A blood test called a prostate-specific antigen (PSA) test. A procedure in which a sample of tissue is taken from the prostate and checked under a microscope (prostate biopsy). An imaging test called transrectal ultrasonography. Once the condition is diagnosed, tests will be done to determine how far the cancer has spread. This is called staging the cancer. Staging may involve imaging tests, such as a bone scan, CT scan, PET scan, or MRI. Stages of prostate cancer The stages of prostate cancer are as follows: Stage 1 (I). At this stage, the cancer is found in the prostate only. The cancer is not visible on imaging tests, and it is usually found by accident, such as during prostate surgery. Stage 2 (II). At this stage, the cancer is more advanced than it is in stage 1, but the cancer has not spread outside the prostate. Stage 3 (III). At this stage, the cancer has spread beyond the outer layer of the prostate to nearby tissues. The cancer may be found in the seminal vesicles, which are near the bladder and the prostate. Stage 4 (IV). At this stage, the cancer has spread to other parts of the body, such as the lymph nodes, bones, bladder, rectum, liver, or lungs. Prostate cancer grading Prostate cancer is also graded according to how the cancer cells look under a microscope. This is called the [place] score and the total score can range from 6 10, indicating how likely it is that the cancer will spread (metastasize) to other parts of the body. The higher the score, the greater the likelihood that the cancer will spread. [place] 6 or lower: This indicates that the cancer cells look similar to normal prostate cells (well differentiated). Amos 7: This indicates that the cancer cells look somewhat similar to normal prostate cells (moderately differentiated). Amos 8, 9, or 10: This indicates that the cancer cells look very different than normal prostate cells (poorly differentiated). How is this treated? Treatment for this condition depends on several factors, including the stage of the cancer, your age, personal preferences, and your overall health. Talk with your health care provider about treatment options that are recommended for you. Common treatments include: Observation for early stage prostate cancer (active surveillance). This involves having exams, blood tests, and in some cases, more biopsies. For some men, this is the only treatment needed. Surgery. Types of surgeries include: ?Open surgery (radical prostatectomy). In this surgery, a larger incision is made to remove the prostate. ?A laparoscopic radical prostatectomy. This is a surgery to remove the prostate and lymph nodes through several small incisions. It is often referred to as a minimally invasive surgery. ?A robotic radical prostatectomy. This is laparoscopic surgery to remove the prostate and lymph nodes with the help of robotic arms that are controlled by the surgeon. ?Cryoablation. This is surgery to freeze and destroy cancer cells. Radiation treatment. Types of radiation treatment include: ?External beam radiation. This type aims beams of radiation from outside the body at the prostate to destroy cancerous cells. ?Brachytherapy. This type uses radioactive needles, seeds, wires, or tubes that are implanted into the prostate gland. Like external beam radiation, brachytherapy destroys cancerous cells. An advantage is that this type of radiation limits the damage to surrounding tissue and has fewer side effects. Chemotherapy. This treatment kills cancer cells or stops them from multiplying. It kills both cancer cells and normal cells. Targeted therapy. This treatment uses medicines to kill cancer cells without damaging normal cells. Hormone treatment. This treatment involves taking medicines that act on testosterone, one of the male hormones, by: ?Stopping your body from producing testosterone. ?Blocking testosterone from reaching cancer cells. Follow these instructions at home: Lifestyle Do not use any products that contain nicotine or tobacco. These products include cigarettes, chewing tobacco, and vaping devices, such as e-cigarettes. If you need help quitting, ask your health care provider. Eat a healthy diet. To do this: ?Eat foods that are high in fiber. These include beans, whole grains, and fresh fruits and vegetables. ?Limit foods that are high in fat and sugar. These include fried or sweet foods. Treatment for prostate cancer may affect sexual function. If you have a partner, continue to have intimate moments. This may include touching, holding, hugging, and caressing your partner. Get plenty of sleep. Consider joining a support group for men who have prostate cancer. Meeting with a support group may help you learn to manage the stress of having cancer. General instructions Take wdos-cnb-ekgbwjm and prescription medicines only as told by your health care provider. If you have to go to the hospital, notify your cancer specialist (oncologist). Keep all follow-up visits. This is important. Where to find more information [place] [employer]: www.cancer.org [place] [employer] Oncology: www.cancer.net National Cancer [place]: www.cancer.gov Contact a health care provider if: You have new or increasing trouble urinating. You have new or increasing blood in your urine. You have new or increasing pain in your hips, back, or chest. Get help right away if: You have weakness or numbness in your legs. You cannot control urination or your bowel movements (incontinence). You have chills or a fever. Summary The prostate is a small gland that is involved in the production of semen. It is located below a man's bladder, in front of the rectum. Prostate cancer is the abnormal growth of cells in the prostate gland. Treatment for this condition depends on the stage of the cancer, your age, personal preferences, and your overall health. Talk with your health care provider about treatment options that are recommended for you. Consider joining a support group for men who have prostate cancer. Meeting with a support group may help you learn to manage the stress of having cancer. This information is not intended to replace advice given to you by your health care provider. Make sure you discuss any questions you have with your health care provider. Document Revised: 09/13/2021 Document Reviewed: 09/13/2021 [employer] Patient Education 2022 [employer]. Follow Up Care 10/09/2022 11:54:22 With:CHEYENNE BAR, Sg Gomes, URL Address: [facility] [address], [place] [address]- When: Unknown [facility] 10-31-2022 Evaluation note Encounter Date Diagnosis Assessment Notes October, Venous insufficiency of both lower extremities (ICD-10 - I87.2) Patient has now had successful ablation of bilateral GSV. He has gotten great results and that has helped his symptoms tremendously. He knows the chronic nature of vein disease and the importance of continued conservative therapy efforts going forward to avoid issues related to his chronic venous disease. We will continue to follow him along as needed. He will call us with any issues or concerns whatsoever. October, Symptomatic varicose veins of both lower extremities (ICD-10 - I83.893) [employer] Other 12-07-2022 Evaluation note* Encounter Date Diagnosis Assessment Notes Treatment Notes Treatment Clinical Notes May, Symptomatic varicose veins of both lower extremities (ICD-10 - I83.893) May, Venous insufficiency of both lower extremities (ICD-10 - I87.2) we reviewed the results of his full functional venous duplex today in the office which revealed greater than 5-second reflux of bilateral GSV, SF J, CFV, and LSV. He suffers with continuous achiness, heaviness, lower extremity fatigue, itching, burning, and edema unrelieved with conservative therapy efforts. He continues use of his graded compression stockings and elevates his legs when he can without much relief in symptoms. We discussed the vein handout page by page and all of his questions were addressed. Discussed recommendation for bilateral lower extremity venaseal procedure for bilateral GSV ablation. We will start with the more symptomatic leg for him which is his right lower extremity. We will submit for insurance approval and get him on the schedule in the near future. He verbalizes understanding of all discussion, agrees with this plan, and denies any questions. [employer] Other Evaluation + Plan note Future Appointments Appointment Date:07/29/2023 01:15:00 PM Scheduled Provider:Sg ACOSTA MD Location:[facility] Appointment Type:URO Office Visit Diagnostic Tests Pending * PSA Total 11/23/22 [facility] evaluation + Plan note Future Appointments Appointment Date:02/03/2024 11:15:00 AM Scheduled Provider:Sg AOCSTA MD Location:[facility] Appointment Type:URO Office Visit Diagnostic Tests Pending * PSA Total 08/05/23 [facility] evaluation + Plan note Future Appointments Appointment Date:02/03/2024 11:15:00 AM Scheduled Provider:Sg ACOSTA MD Location:[facility] Appointment Type:URO Office Visit Appointment Date:05/14/2024 03:30:00 PM Scheduled Provider:Clifford Doss MD [facility] Work Phone: Evaluation noteNo InformationNortP[facility] [employer] Other History general Narrative - Reported* Type Description Date Medical History Hypertension Medical History Prostate enlargement Medical History aneurysm x's 5 in chest no surge ry just medicated. Medical History seasonal allergies Surgical History Thumb urgery Hospitalization History chest aneurysm [address] [facility] [employer] Other Hospital course Narrative No data available for this section [facility] Hospital Discharge instructions No data available for [facility] No data available for this section [facility] Summary Purpose Family History No Family History Records Found Relationship Condition Age at Onset Recorded Date/T turner father Hypertension Unknown Not Specified Diabetes mellitus Unknown Hypertension Unknown Advance Directives No Advanced Directives Records Found Advance Directive Response Recorded Date/ Time Advance Directives No July 24, 2019 7:55am Advance Directive Response Recorded Date/ Time Advance Directives No July 24, 2019 8:55am Chief Complaint and Reason for Visit Chief Complaint I83.813 Chief Complaint I83.813 i83.811 s/p venoseal Chief Complaint i83.811 s/p venoseal C61 Chief Complaint i83.811 s/p venoseal C61 i83.812 Additional Source Comments (unrecognized sect ion and content) No Status Records FoundNo Status Records FoundNo Status Records FoundNo Status Records Found INFORMATION SOURCE (unrecogn ized section and content) DATE CREATED AUTHOR 12/19/2017 [facility] DATE CREATED AUTHOR AUTHOR'S ORGANIZ ATION [facility]20[facility] DATE CREATED AUTHOR AUTHOR'S ORGANIZ ATION 10/24/2022 [facility] DATE CREATED AUTHOR AUTHOR'S ORGANIZ ATION 02/11/2024 [facility] REASON FOR VISIT (unrecogniz ed section and content) 4 WK FOLLOW UP; FULL FUNCTIO NAL VENOUS DUPLEX BOTH LEGS 9AVENASEAL WORSE LEG FIRST-RIGHTVENASEAL LEFT LEG4 WK S/P VENASEAL LEFT LEG Care Teams (unrecognized sec tion and content) Team Status: Inactive Member Role Status Dates Jonh Nice , DO Primary Care Provider Active Joe Langston MD Attending Provider Active Team Status: Active Member Role Status Dates Jonh Nice , DO Primary Care Provider Active Team Status: Inactive Member Role Status Dates Jonh Nice , DO Primary Care Provider Active Sg Acosta MD Attending Provider Active Team Status: Inactive Member Role Status Dates Jonh Nice , DO Primary Care Provider Active Gertrudis Holloway NP-C Attending Provider Active Goals (unrecognized section and content) Goals may be documented in a n alternate section FOR RECORDS PERTAINING TO PATIENTS WHO ARE OR HAVE BEEN ENROLLED IN A CHEMICAL DEPENDENCY/SUBSTANCEABUSE PROGRAM, SOME INFORMATION MAY BE OMITTED. This clinical summary was aggregated from multiple sources. Caution should be exercised in using it in the provision of clinical care. This summary normalizes information from multiple sources, and as a consequence, information in this document may materially change the coding, format and clinical context of patient data. In addition, data may be omitted in some cases. CLINICAL DECISIONS SHOULD BE BASED ON THE PRIMARY CLINICAL RECORDS. No [employer] provides no warranty or guarantee of the accuracy or completeness of information in this document.
== END 2024-03-30 12:51 | disposition home or self-care (01) ==
LOC: LAB 12:52
PROVIDERS: PCP Family Medicine; Visit Provider Urology
DX: C61 Malignant neoplasm of prostate (principal)
CPT/HCPCS: 36415; 84153

== ENCOUNTER 2024-09-30 10:09 | Outpatient (OUT) | payer OTHER, SELFPAY ==
--- OUTSIDE RECORDS SUMMARY | 2024-09-30 10:15 | XMS_ITS | CCD ---
Author Organization [facility] CliniSynv Care Team Providers Care Shoulder Puncher Name Role Phone PHYSICIAN, DEFAULT Unavailable Unavailable PHYSICIAN, DEFAULT Unavailable Unavailable Gertrudis Holloway Unavailable DO Jonh Nice Primary Care Provider MD Joe Langston Attending Provider [phone] Joe Langston Unavailable ANDREW, DR KRISHNA Gomes Attending Unavailable ANDREW, DR KRISHNA Gomes Admitting Unavailable ARLET, DR MCFADDEN Primary Care Unavailable ANDREW, DR KRISHNA Gomes Consulting Unavailable RIA, DR ALECIA Gomes Consulting Unavailable KATMESFIN FRASER Consulting Unavailable ARMAND, ZENAIDA Attending Unavailable ARMAND, ZENAIDA Admitting Unavailable ARMAND, ZENAIDA Consulting Unavailable ARLET, DR MCFADDEN Primary Care Unavailable ANDREW, DR KRISHNA Gomes Attending Unavailable ANDREW, DR KRISHNA Gomes Admitting Unavailable ARLET, DR MCFADDEN Primary Care Unavailable ANDREW, DR KRISHNA Gomes Consulting Unavailable DO Jonh Nice Primary Care Provider MD Joe Langston Attending Provider MD Sg Acosta Attending Provider [phone] NEFTALI Holloway Attending Provider Joe Langston Admitting UnavailJoe Larson Attending UnavailJonh Parr Primary Care Unavailable Joe Langston Admitting UnavailJoe Larson Attending UnavailJonh Parr Primary Care Unavailable Sg Acosta Admpearl Unavailable Sg Acosta Attending Unavailable Jonh Nice Primary Care Unavailable Gertrudis Holloway Admitting Unavailable Gertrudis Holloway Attending Unavailable Jonh Nice Primary Care Unavailable Jonh Nice Primary Care Physician [phone] JONH NICE Primary Care Physician Clifford Doss Primary Care Physician Clifford Doss Attending Unavailable Clifford Doss Attending Unavailable Clifford Doss Attending Unavailable Sg ACOSTA Attending Unavailable Sg ACOSTA Attending Unavailable Sg ACOSTA Attending Unavailable Clifford Doss Attending Unavailable Clifford Doss Admitting Unavailable Clifford Doss Attending Unavailable Allergies Allergy Classification Reported Allergen(s) Allergy Type Date of Onset Reaction(s) Facility (9 sources) Penicillin G Benzathine; Translations: [Penicillin G] Drug allergy anaphylaxis, Unknown (qualifier value) [facility] (1 source) Penicillins Drug allergy (disorder) [facility] (1 source) Penicillins Drug allergy (disorder) 0 [facility] Medications Current Medications Medication Drug Class(es) Dates Sig (Normalized) Sig (Original) atorvastatin 40 mg oral tablet (1 source) HMG-CoA Reductase Inhibitor Start: 11-15-2023 take 1 tablet by mouth once daily Lipitor 40 mg Tab 40 mg = 1 tab(s), Oral, Daily, # 90 tab(s), Refills(s) 0, Pharmacy: [facility] #[id number], 177, cm, 11/12/23 15:21:00 EDT, Height/Length Dosing, 100.5, kg, 11/12/23 15:21:00 EDT, Weight Dosing Start Date: 11/15/23 Status: Ordered ciprofloxacin 500 mg oral tablet (4 sources) Quinolone Antimicrobial Start: 07-24-2019 take 500 mg by mouth twice daily Ciprofloxacin Hcl Active 500 MG PO Twice daily July 24, 2019 1:00am Compression stockings, 20-30mmHg, thigh 20-30mmHg (4 sources) Start: 06-06-2022 Compression stockings, 20-30mmHg, thigh 20-30mmHg externally daily as directed for 90 days May, Active lisinopril 20 mg oral tablet (12 sources) Angiotensin Converting Enzyme Inhibitor Start: 03-05-2024 take 1 tablet by mouth once daily lisinopril 20 mg Tab 20 mg, Oral, Daily, # 90 EA, Refills(s) 1, Pharmacy: [facility] #72, 177, cm, 11/12/23 15:21:00 EDT, Height/Length Dosing, 100.5, kg, 11/12/23 15:21:00 EDT, Weight Dosing Start Date: 03/05/24 Status: Ordered Start: 08-12-2023 take 1 tablet by jazzy th once daily lisinopril 20 mg Tab 20 mg, Oral, Daily, # 90 EA, Refills(s) 1, Pharmacy: [facility] #[id number], 177, cm, 08/12/23 15:41:00 EST, Height/Length Dosing, [...] 1:00am rimegepant 75 mg disintegrating oral tablet (2 sources) Start: 02-10-2024 take 1 tablet by mouth once Nurtec ODT 75 mg oral tablet, disintegrating 75 mg = 1 tab(s), Oral, Once, # 1 tab(s), Refills(s) 2, Pharmacy: [facility] #[id number], 177, cm, 11/12/23 15:21:00 EDT, Height/Length Dosing, 100.5, kg, 11/12/23 15:21:00 EDT, Weight Dosing Start Date: 02/10/24 Status: Ordered Start: 08-12-2023 take 1 tablet by mouth once Nu rtec ODT 75 mg oral tablet, disintegrating 75 mg = 1 tab(s), Oral, Once, # 1 tab(s), Refills(s) 0, samples given to patient (Rx) Start Date: 08/12/23 Status: Ordered rivaroxaban 10 mg oral tablet (12 sources) Factor Xa Inhibitor Start: 03-05-2024 take 1 tablet by mouth once daily Xarelto 10 mg oral tablet 10 mg, Oral, Daily, # 90 tab(s), Refills(s) 1, Pharmacy: [facility] #72, 177, cm, 11/12/23 15:21:00 EDT, Height/Length Dosing, 100.5, kg, 11/12/23 15:21:00 EDT, Weight Dosing Start Date: 03/05/24 Status: Ordered Start: 09-30-2023 take 1 tablet by jazzy once daily Xarelto 10 mg oral tablet 10 mg, Oral, Daily, # 90 tab(s), Refills(s) 1, Pharmacy: [facility] #[id number], 177, cm, 08/12/23 15:41:00 EST, Height/Length Dosing, 97.9, kg, 08/12/23 15:41:00 EST, Weight Dosing Start Date: 09/30/23 Status: Ordered Start: 07-24-2019 take 1 tablet by jazzy once daily Rivaroxaban (Xarelto) 2.5 mg Tablet Active 1 TAB PO Daily July 24, 2019 1:00am Start: 04-09-2019 Xarelto Oral, Refills(s) 0 Start Date: 04/09/19 Status: Ordered take 1 tablet by jazzy every twenty-four hours Xarelto 10 MG 1 tablet Orally Once a day Active SUMAtriptan 100 mg oral tablet (3 sources) Serotonin-1b and Serotonin-1d Receptor Agonist Start: 02-11-2024 take 1 tablet by mouth once daily as needed SUMAtriptan 100 mg Tab 100 mg = 1 tab(s), Oral, Daily, as needed for migraine, # 9 tab(s), Refills(s) 0, Pharmacy: [facility] #72, 177, cm, 11/12/23 15:21:00 EDT, Height/Length Dosing, 100.5, kg, 11/12/23 15:21:00 EDT, Weight Dosing Start Date: 02/11/24 Status: Ordered Start: 09-05-2022 SUMAtriptan 10 0 mg Tab Refills(s) 0 Start Date: 09/05/22 Status: Ordered tamsulosin hydrochloride 0.4 mg oral capsule (12 sources) alpha-Adrenergic Tram Start: 08-05-2023 End: 02-27-2025 take 1 capsule by mouth twice daily Flomax 0.4 mg Cap 0.4 mg = 1 cap(s), Oral, BID, X 90 day(s), # 180 cap(s), Refills(s) 3, Pharmacy: [facility] #72, 177, cm, 11/12/23 15:21:00 EDT, Height/Length Dosing, 100.5, kg, 11/12/23 15:21:00 EDT, Weight Dosing Start Date: 03/04/24 Stop Date: 02/27/25 Status: Ordered Start: 10-22-2022 take 1 capsule by mo [facility] twice daily Flomax 0.4 mg Cap 0.4 mg = 1 cap(s), Oral, BID, # 60 caplet(s), Refills(s) 11, Pharmacy: [facility] #[id number], 177, cm, 09/05/22 14:01:00 EST, Height/Length Dosing, 101, kg, 09/05/22 14:01:00 EST, Weight Dosing Start Date: 10/22/22 Status: Ordered Start: 07-24-2019 take 1 tablet by [facility] once daily Tamsulosin Active 1 TAB PO Daily July 24, 2019 1:00am Tamsulosin HCl A ctive Problems Active Problems Problem Classification Problem Date Documented Date Episodic/Chronic Cancer of prostate (8 sources) Malignant neoplasm of prostate; Translations: [Malignant neoplasm of prostate] Onset: 3 Chronic Coagulation and hemorrhagic disorders (2 sources) Hypercoagulability state 08-12-2023 Chronic Essential hypertension (3 sources) Essential (primary) hypertension; Translations: [Hypertensive disorder] Onset: 2 08-12-2023 Chronic Genitourinary symptoms and ill-defined conditions (4 sources) Microscopic hematuria 04-09-2019 Episodic Headache; including migraine (12 sources) Migraine aura without headache ; Translations: [Migraine with aura, not intractable, without status migrainosus] 04-09-2019 Chronic Hyperplasia of prostate (9 sources) Benign prostatic hyperplasia with lower urinary [...] (chronic) (peripheral)] Episodic Other male genital disorders (4 sources) 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 Other screening for suspected conditions (not mental disorders or infectious disease) (8 sources) Elevated prostate specific antigen [PSA]; Translations: [Raised prostate specific antigen] Onset: 3 Episodic Other upper respiratory disease (4 sources) Sinusitis; Translations: [Allergic rhinitis, unspecified] Chronic Other upper respiratory infections (1 source) Chronic sinusitis, unspecified; Translations: [CHRONIC SINUSITIS UNSPECIFIED] Onset: 2 Chronic Phlebitis; thrombophlebitis and thromboembolism (4 sources) Deep venous thrombosis 04-09-2019 Episodic Unclassified [...] lower extremities with pain] Onset: 2 Unclassified (4 sources) Drug therapy finding 02-08-2020 Unclassified (2 sources) Patient encounter status 11-12-2023 Varicose veins of lower extremity (6 sources) Varicose veins of lower extremity; Translations: [Varicose veins of bilateral lower extremities with other complications] Episodic Past or Other Problems Problem Classification Problem Date Documented Da te Episodic/Chronic Abdominal pain (4 sources) Unspecified abdominal pain; Translations: [UNSPECIFIED ABDOMINAL PAIN] Onset: 02-14-2022 Episodic Other aftercare (1 source) 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; Translations: [OTH LONG-TERM CURRENT DRUG THERAPY] Onset: 05-28-2022 Episodic Other aftercare (1 source) shelter (current) use of anticoagulants; Translations: [MEAT HOSTESS CURRNT USE ANTICOAGULANTS] Onset: 02-15-2022 Episodic Pulmonary [...] Results Test Name Value Interpretation Reference Range [facility] cynthia Family Medicine Office/Clini c Noteon 05-14-2024 Family Medicine Office/Clinic Note Family Medicine Office/Clinic Note Chief Complaint 6m follow up to HTN Migraine headaches occurring one to two times per month HPI Staff Darius is a 63 year old male presenting for 6 month follow up htn Patient is here for follow up on hypertension. How often are you checking your blood pressure? _no What are your average readings? _ Yearly BMP: Needs refill of sumtriptan. Has been getting migraines 1-2x/month. History of Present Illness The patient is a 63-year-old male presenting with migraine headaches. He experiences these migraines approximately one to two times per month. Attempts have been made to manage this condition with sample medications provided previously, including Ubrelvy and Nyrtec. The patient reports that while the samples were somewhat effective, there were issues with insurance coverage preventing their continued use, leading him to revert to previous medications. In addition, the patient reports that the migraines can be debilitating, causing significant discomfort, and some medications provided ample relief but also undesirable side effects such as extreme drowsiness. During a review of his ongoing medical issues, the patient's hypertension was noted to be slightly elevated during the early part of the visit; however, it aligns with previous normal readings, as recognized by his other physicians. There are no current reports of bleeding or complications associated with anticoagulant use for the management of deep venous thrombosis and hypercoagulable state. Additionally, his PSA levels have been recently evaluated and found to be within normal limits, with no concerning issues noted by Dr. Acosta, who manages his care in this aspect. Review of Systems PHQ Score Initial Depression Screen Score: 0 SCORE - Neurological: Reports one to two migraines per month. - General: Denies any bleeding episodes. Physical Exam Vitals & Measurements T: 36.8 ???C(Tympanic) HR: 85(Peripheral) RR: 18 BP: 142/84 SpO2: 98% HT: 70 in HT: 177 cm WT: 99.2 kg WT: 218.698 lb BMI: 31.66 General: alert, no acute distress ENMT: oral mucosa moist Cardiovascular: Regular rate and rhythm, normal peripheral perfusion Respiratory: Lungs clear to auscultation, respirations non labored Extremities: no deformity, no trauma Neurological: oriented x 4, level of consciousness appropriate for age, CN II-XII intact, motor strength equal & normal bilaterally, speech normal Abdomen: Soft, Non-tender, Non-distended, + Bowel sounds Assessment/Plan 1. HTN (hypertension) (I10: Essential (primary) hypertension) The patient???s blood pressure readings are slightly elevated; however, they have historically been well controlled under current medication after emotional distress was considered. Instructed to continue current antihypertensive therapy with regular monitoring. Follow-up with updated blood pressure readings is to be ensured. 2. 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 No changes in current anticoagulation treatment are necessary. Continue regular screenings for complications. 3. 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 No concerns today. 4. Deep venous thrombosis (I82.409: Acute embolism and thrombosis of unspecified deep veins of unspecified lower extremity) Patient will continue on Xarelto. No issues at this time. 5. Hypercoagulable state (D68.59: Other primary thrombophilia) As above. 6. Elevated PSA (R97.20: Elevated prostate specific antigen [PSA]) Current PSA levels are within normal limits. Monitoring to be continued under the care of Dr. Acosta with no current need for intervention. 7. Migraine headache (G43.909: Migraine, unspecified, not intractable, without status migrainosus) Migraines present one to two times per month. Past samples of medications such as Ubrelvy and Nyrtec provided relief yet had issues with coverage and drowsiness. Consider continued exploration of effective treatment alternatives to mitigate side effects. Offered additional samples for immediate relief with plans to reassess the treatment regimen based on response and insurance coverage. Potential future inclusion of prophylactic treatment based on frequency and severity assessment. [facility] samples given. Orders: atorvastatin, 40 mg = 1 tab(s), Oral, Daily, # 90 tab(s), Refills(s) 0, Pharmacy: [facility] #[id number], 177, cm, 11/12/23 15:21:00 EDT, Height/Length Dosing, 100.5, kg, 11/12/23 15:21:00 EDT, Weight Dosing The patient is a 63-year-old male with a history of essential hypertension and anticoagulation therapy presenting with migraine headaches that occur one to two times per month. The patient reports the need for medication management adjustments due to insurance issues with prior sample medications. The patient's hypertension is noted with previous evaluations indicating citlaly (more content not included)... Normal [facility] Comment on above: Result Comment: Elec tronically Signed By: Romario BAR, Clifford Vincent\.br\Date and Time Signed: 05/14/24 16:04 EST Urology Office/Clinic Noteon 04-13-2024 Urology Office/Clinic Note Urology Office/Clinic Note Chief Complaint 6 MTH F/U W/ PSA HPI Staff 63 yr old male here today 6 mth month f/u with PSA. Previous dx of prostate cancer (ACTIVE SURVEILLANCE) and BPH with urinary obstruction. Tamsulosin 0.4mg BID. PSA: 03/2019 - 1.77 12/2019 - 1.45 07/2020 - 1.60 01/2021 - 1.78 08/2021 - 1.84 08/27/22 - 2.84 07/18/23 - 2.05 03/30/24 - 2.10 Dysuria: no Incomplete bladder emptying: no Hematuria:no, but trace IO today Frequency: q2-3 hrs Urgency:no Nocturia: no Stream:no Leaking:no Post void dripping:no Wearing pads/ Depends:no Urge incontinence:no Stress incontinence:no Incontinence without Sensory Awareness:no Abdominal pain:no Flank pain:no Sexual complaints: no History of Present Illness [...] HPI. Physical Exam Vitals & Measurements HR: 112(Peripheral) BP: 124/70 HT: 70 in HT: 177 cm WT: 100 kg WT: 220 lb BMI: 31.92 General Appearance: alert, no distress, well nourished, well developed male. Assessment/Plan 1. Prostate CA (C61: Malignant neoplasm of prostate) ACTIVE SURVEILLANCE. PSA: 03/2019 - 1.77 12/2019 - 1.45 07/2020 - 1.60 01/2021 - 1.78 08/2021 - 1.84 08/27/22 - 2.84 07/18/23 - 2.05 11/12/23 - 1.9 03/30/24 - 2.10 Originally diagnosed TRUS/bx 07/29/18 - Riesel 6 (3+3) x 1 core and VEL x 1 core. Repeat bx 07/2019 - Negative. Prostate MRI [facility] - Prostate volume 29mL. No evidence of high-grade prostate malignancy or local mets. TRUS/bx 11/16/22 - Path showed Riesel 6 (3+3), grade group 1, in one core on R. Focal chronic prostatitis. BOBY 08/05/23: 40g, no nodules PSA remains stable. No indication for further intervention, will continue to monitor. -F/u in 6 mos w/ PSA 2. BPH with urinary obstruction (N40.1: Benign prostatic hyperplasia with lower urinary tract symptoms) Taking Flomax 0.4 mg bid. UA today shows trace-intact blood, negative for infection. Denies gross hematuria. Not voicing any urinary habit complaints. -Cont Flomax wo changes. Call for refills. Follow-up With When Contact Information [place]NE BAR, Sg Gomes, URL [facility] [address], [place] [address] [phone] Additional Instructions: 6 mos w/ PSA Patient Education Prostate Cancer Screening I, Jewels Victoria, personally scribed for Dr. Acosta on 04/13/2024 15:42:47. . Documentation recorded by the scribe, Jewels Victoria, accurately reflects the services(s) I performed and decisions made by me. Authenticated by Dr. Acosta on 04/13/2024 15:46:24. Problem List/Past Medical History Ongoing Anticoagulated BPH [...] mg= 1 cap(s), Oral, BID, 3 refills Lipitor 40 mg Tab, 40 mg= 1 tab(s), Oral, Daily lisinopril 20 mg Tab, 20 mg, Oral, Daily, 1 refills Nurtec ODT 75 mg oral tablet, disintegrating, 75 mg= 1 tab(s), Oral, Once, 2 refills SUMAtriptan 100 mg Tab, 100 mg= 1 tab(s), Oral, Daily Xarelto 10 mg oral tablet, 10 mg, Oral, Daily, 1 refills Allergies penicillin G benzathine (Unknown) Social History Alcohol Current, Liquor, 1-2 times per month, 04/17/2019 Tobacco - Denies Tobacco Use, 04/17/2019 Former smoker, quit more than 30 days ago Tobacco Use:. Smokeless tobacco user within last 30 days Smokeless Tobacco Use:. Cigarettes, Household tobacco concerns: No. Yes, 04/13/2024 Family History Diabetes: Mother. Hypertension: Mother and Father. Immunizations Vaccine Date Status Comments SARS-CoV-2 (COVID-19) mRNA BNT-162b2 vax 06/22/2021 Recorded SARS-CoV-2 (COVID-19) mRNA BNT-162b2 vax 11/08/2020 Recorded SARS-CoV-2 (COVID-19) mRNA BNT-162b2 vax 10/20 (more content not included)... [facility] Comment on above: Result Comment: Elec tronically Signed By: Sg ACOSTA MD\.br\Date and Time Signed: 04/13/24 15:46 EDT\.br\Electronically Co-Signed By: Jewels Victoria\.br\Date and Time Co-Signed: 04/13/24 15:43 EDT Pre-Certification Formon Pre-Certification Form [id number] #1.00TIFF [facility] Pre-Certification Formon Pre-Certification Form [id number] #1.00TIFF [facility] Ambulatory Visit Summaryon 0 11-12-2023 Ambulatory Visit Summary DARIUS VALLADARES :1960 Visit Date:11/12/2023 Ambulatory Visit Instructions Your Diagnosis Physical exam HTN (hypertension) Migraine headache BMI 32.0-32.9,adult Class 1 obesity due to excess calories in adult Former smoker Elevated PSA Your Care Team Attending Physician - Clifford Doss MD Primary Care Physician - JONH NICE [...] BAR, Sg Gomes Where: [facility] Normal [address] [place] [address]- \.br\ Medications\.br\ What How Much When Instructions\.br\ [...] for choosing us for your care.\.br\ \.br\ [facility] CBC w/ Auto Diffon 4 Basophils/100 WBC (Bld) 0.6 % Normal 0.0-2.0 [facility] Comment on above: Performed By: #### 2 090691, [id number], 2849425, 6620849, [id number] ####[address] [address] Basophils/Leukocytes Auto (Bld) [Pure # fraction] 0.1 E9/L Normal 0.0-0.2 [facility] Comment on above: Performed By: #### 2 577043, 00465240, 9465205, 2362748, [id number] ####[place] [id number] Eosinophils (Bld) [#/Vol] 0.6 E9/L High 0.0-0.5 [facility] Comment on above: Performed By: #### 2 308784, 74648575, 7456933, 1265380, 77026807 ####[place] [address]957 Eosinophils/100 WBC (Bld) 6.2 % Normal 0.0-8.0 [facility] Comment on above: Performed By: #### 2 677893, 22308880, 9607154, 5698815, 04493665 ####[place] 8[address]957 Erythrocyte distribution width (RBC) [Ratio] 13.3 % Normal 10.9-14.2 [facility] Comment on above: Performed By: #### 2 616854, 99934667, 5346195, 7401883, 97421084 ####[place] [address] Hematocrit (Bld) [Volume fraction] 46.4 % Normal 37.7-49.0 [facility] Comment on above: Performed By: #### 2 491161, 26855121, 7800018, 1544154, 28944086 ####[address] [address] Hemoglobin (Bld) [Mass/Vol] 15.9 g/dL Normal 13.5-17.5 [facility] Comment on above: Performed By: #### 2 800653, 16075071, 8325429, 9723450, 35592949 ####[facility] [address] [place] [address] Lymphocytes (Bld) [#/Vol] 1.8 E9/L Normal 1.0-4.0 [facility] Comment on above: Performed By: #### 2 505590, 83656392, 8347410, 1893020, 68765787 ####[address] [address] Lymphocytes/100 WBC (Bld) 20.1 % Normal 14.0-50.0 [facility] Comment on above: Performed By: #### 2 149475, 46131252, 4374810, 9943082, 95829258 ####[place] [address]957 MCH (RBC) [Entitic mass] 30.6 pg Normal 27.0-34.0 [facility] Comment on above: Performed By: #### 2 160004, [id number], 5205137, 1461789, 55127711 ####[place] [address]645957 MCHC (RBC) [Mass/Vol] 34.3 g/dL Normal 31.4-36.0 [facility] Comment on above: Performed By: #### 2 806226, 79236026, 5577533, 2356453, 03500388 ####[address] [address] MCV (RBC) [Entitic vol] 89.5 fL Normal 80.0-100.0 [facility] Comment on above: Performed By: #### 2 713142, 97770841, 9204788, 5576758, 99649233 ####[address] [address] Monocytes (Bld) [#/Vol] 0.9 E9/L Normal 0.2-1.0 [facility] Comment on above: Performed By: #### 2 973507, 01480094, 7284730, 2061867, 65110021 ####[facility] [address] [place] [address] Neutrophils (Bld) [#/Vol] 5.7 E9/L Normal 2.0-7.5 [facility] Comment on above: Performed By: #### 2 285095, 99880976, 3035347, 1841444, 61846934 ####[place] [address] [place] [address] Neutrophils/100 WBC (Bld) 63.5 % Normal 36.0-75.0 [facility] Comment on above: Performed By: #### 2 824291, 33223874, 2858919, 8706917, 98079378 ####[address] [address] Platelet mean volume (Bld) [Entitic vol] 8.7 fL Normal 6.4-10.8 [facility] Comment on above: Performed By: #### 2 299276, 11900393, 3644836, 9989968, 43407018 ####[address] [address] Platelets (Bld) [#/Vol] 274.0 E9/L Normal 150.0-500.0 [facility] Comment on above: Performed By: #### 2 811633, 92929362, 2292248, 9707402, 83306815 ####[address] [address] RBC (Bld) [#/Vol] 5.2 E12/L Normal 4.3-5.9 [facility] Comment on above: Performed By: #### 2 584204, 60003520, 7905107, 9495165, 99170416 ####[address] [address] WBC corrected for nucl RBC Auto (Bld) [#/Vol] 9.0 E9/L Normal 4.0-11.0 [facility] Comment on above: Performed By: #### 2 878899, 85671168, 1445006, 2134516, 65113130 ####[place] [facility] [address] [place] [address] CHEMISTRYOrdered By: SYSTEM SYSTEM on 11-12-2023 Albumin [Mass/Vol] 4.2 g/dL [...] for this result was chemiluminescence using [email or web address]'s Access [employer] PSA reagent. Protein [Mass/Vol] 6.3 [...] 11-12-2023 Albumin [Mass/Vol] 4.2 g/dL Normal 3.3-5.0 [facility] Comment on above: Performed By: #### 2 594144, 27071691, 8991703, 9188822, 54608294 ####[facility] [address] [place] [address] Albumin/Globulin (S) [Mass conc ratio] 2.0 Normal 1.1-2.2 [facility] Comment on above: Performed By: #### 2 541447, 12183991, 7021070, [id number], [id number] ####[facility] [address] [place] [address] ALP [Catalytic activity/Vol] 77 Int._Unit/L Normal 21-98 [facility] Comment on above: Performed By: #### 2 482891, 35769286, 5950295, 8444107, 86042134 ####[facility] [address] [place] [address] ALT No additional P-5'-P [Catalytic activity/Vol] 18 Int._Unit/L Normal 6-46 [facility] Comment on above: Performed By: #### 2 720151, 23389152, 5030131, 4908637, [id number] ####[facility] [address] [place] [address] Anion gap [Moles/Vol] 12 mmol/L Normal 6-16 [facility] Comment on above: Performed By: #### 2 819413, 02042371, 6137280, 0846024, 80754248 ####[facility] [address] [place] [address] AST [Catalytic activity/Vol] 13 Int._Unit/L Normal 5-43 [facility] Comment on above: Performed By: #### 2 489187, 77503822, 0776298, 6664351, 42937975 ####[facility] [address] [place] [address] Bilirubin [Mass/Vol] 0.6 mg/dL Normal 0.0-1.1 [facility] Comment on above: Performed By: #### 2 594567, 06209545, 5763951, 7997835, 87351204 ####[facility] [address] [place] [address] Calcium [Mass/Vol] 9.2 mg/dL Normal 8.9-11.1 [facility] Comment on above: Performed By: #### 2 327942, 74138145, 5410391, 4291677, 03879896 ####[facility] [address] [place] [address] Chloride [Moles/Vol] 106 mmol/L Normal 101-111 [facility] Comment on above: Performed By: #### 2 629886, 58856492, 4755649, 2372929, 33422945 ####[facility] [address] [place] [address] CO2 [Moles/Vol] 26 mmol/L Normal 21-31 [facility] Comment on above: Performed By: #### 2 688140, 39515061, 2445123, 1552987, 36819048 ####[facility] [address] [place] [address] Creatinine [Mass/Vol] 0.9 mg/dL Normal 0.5-1.3 [facility] Comment on above: Performed By: #### 2 253818, 72685408, 7483166, 8229599, 54534153 ####[facility] [address] [place] [address] Globulin (S) [Mass/Vol] 2.1 g/dL Normal 1.4-4.0 [facility] Comment on above: Performed By: #### 2 596753, 79244123, 6406910, 4543143, 74880663 ####[facility] [address] [place] [address] Glucose [Mass/Vol] 102 mg/dL Normal 55-199 [facility] Comment on above: Performed By: #### 2 853165, 88425574, 4778362, 1647217, 09889868 ####[facility] [address] [place] [address] Potassium [Moles/Vol] 3.8 mmol/L Normal 3.5-5.3 [facility] Comment on above: Performed By: #### 2 105323, 12879166, 2243149, 8369197, 90022421 ####[facility] [address] [place] [address] Protein [Mass/Vol] 6.3 g/dL Normal 6.0-7.8 [facility] Comment on above: Performed By: #### 2 111951, 16513402, 9505494, 0816276, 85620874 ####[facility] [address] [place] [address] Sodium [Moles/Vol] 140 mmol/L Normal 135-145 [facility] Comment on above: Performed By: #### 2 908848, 61563535, 6114994, 6175599, 51492657 ####[facility] [address] [place] [address] Urea nitrogen [Mass/Vol] 15 mg/dL Normal 5-21 [facility] Comment on above: Performed By: #### 2 362112, 81547993, 5689519, 9681439, 60910626 ####[facility] [address] [place] [address] Urea nitrogen/Creatinine [Mass ratio] 17 No Units Normal 10-20 [facility] Comment on above: Performed By: #### 2 811518, 98395545, 8721266, 7466948, 91261194 ####[facility] [address] [place] [address] Family Medicine Office/Clini c Noteon 11-12-2023 Family Medicine Office/Clinic Note HPI Staff Darius is a 63 year old female presenting for 2 month follow up htn, migraines SLIM changed to bannerte Says he needs labs, health assessment Patient is here for follow up on hypertension. How often are you checking your blood pressure? Doesnt check BP at home What are your average readings? N/A, Not checking at home Yearly BMP: _ Headaches: Time of Onset: had one on saturday but it passed, [employer] is working Location: [facility] _ _ _ Typical headache frequency: 8-9 days a month Prior headache work-up: not addressed _ _ questions/concerns: needs the [facility] refilled History of Present Illness - See [...] and doesn't remember dates of vaccination Normal [facility] Comment on above: Result Comment: Elec tronically Signed By: Romario BAR, Clifford Vincent\.br\Date and Time Signed: 11/12/23 15:33 EDT HEMATOLOGYOrdered [...] 11-12-2023 Cholesterol [Mass/Vol] 242 mg/dL High 120-200 [facility] Comment on above: Performed By: #### 2 636576, 17267473, 6147320, 9435253, 83547639 ####[facility] [address] [place] [address] Cholesterol in HDL [Mass/Vol] 37 mg/dL Invalid Interpretation Code [facility] Comment on above: Result Comment: '>= 60 LOW RISK' '<= 40 HIGH RISK' Performed By: #### 2 945444, 13362002, 8869831, 3866872, 03720981 ####[facility] [address] [place] [address] Cholesterol in LDL [Mass/Vol] 190 mg/dL High <=129 [facility] Comment on above: Performed By: #### 2 881746, 66952879, 7706081, 5674954, 36437679 ####[facility] [address] [place] [address] Cholesterol in VLDL [Mass/Vol] 41 mg/dL High 7-40 [facility] Comment on above: Performed By: #### 2 671876, 03178047, 1769277, 2083039, 13981660 ####[facility] [address] [place] [address] Triglyceride [Mass/Vol] 203 mg/dL High <=149 [facility] Comment on above: Performed By: #### 2 678457, 58796299, 8421128, 4273755, 65341568 ####[facility] [address] [place] [address] PSA Totalon 11-12-2023 Prostate specific Ag [Mass/Vol] 1.9 ng/mL Normal 0.1-3.5 [facility] Comment on above: Result Comment: The concentration of PSA determined by different manufacturers can vary due to differences in assay methods and reagent specificity. Values obtained from different assay methods cannot be used interchangeably. The methodology used for this result was chemiluminescence using [employer]'s Access Hybritech PSA reagent. Performed By: #### 2 800766, 10620297, 3005723, 6691387, 62122155 ####[facility] [address] [place] [address] eGFRon 11-12-2023 eGFR 96 mL/min/1.73 m2 Normal >=59 [facility] Comment on above: Order Comment: Order added by Discern Expert. Performed By: #### 2 376399, 54958073, 0949865, 5144413, 80755141 ####[facility] [address] [place] [address] Family Medicine Office/Clini c Noteon 08-12-2023 Family Medicine Office/Clinic Note HPI Staff Darius is a 62 year old male presenting to establish care Establish Care: History:DVT, prostate CA, migraines Any previous diagnosis: History of seeing any specialist: dr acosta [facility] When was your last doctors visit: Last provider: Dr Nice Any recent labs: none Health Maintenance UTD: Colonoscopy: due 2 years PSA: [facility] in Jul 2023 flu: refused Acute: Current [...] Daily, # 90 EA, Refills(s) 1, Pharmacy: [facility] #[id number], 177, cm, 08/12/23 15:41:00 EST, Height/Length Dosing, [...] and doesn't remember dates of vaccination Normal [facility] Comment on above: Result Comment: Elec tronically Signed By: Romario BAR, Clifford Vincent\.br\Date and Time Signed: 08/12/23 16:03 EST Ambulatory [...] PSA Where: [facility] [address] , [place] [phone] Medications What How Much When Instructions Changed tamsulosin (Flomax 0.4 mg Cap) 1 Capsules By Mouth 2 times a day Duration: 90 Days Pickup at [facility] #[id number] Unchanged lisinopril By Mouth Every day Contact prescribing physician if questions or concerns Unchanged rivaroxaban (Xarelto) By Mouth Contact prescribing physician if questions or concerns Unchanged sumatriptan (SUMAtriptan 100 mg Tab) Contact prescribing physician if questions or concerns Pharmacy Information [id number]: [address], [place] [id number] [phone] Allergies penicillin G benzathine (Unknown) Problems Ongoing [...] the fernanda (more content not included)... Normal [facility] Patient Educationon 08-05-19 24 Patient Education Oncology Prostate Cancer The prostate [...] likelihood that the cancer will spread. ? Amos 6 or lower: This indicates that the cancer cells look similar to normal prostate cells (well differentiated). ? Riesel 7: This indicates that the cancer cells look somewhat similar to normal prostate cells (moderately differentiated). ? Riesel 8, 9, or 10: This indicates that [...] external be (more content not included)... Normal [facility] Urology Office/Clinic Noteon 08-05-2023 Urology Office/Clinic Note [...] - 2.05 Originally diagnosed TRUS/bx 07/29/18 - Riesel 6 (3+3) x 1 core and VEL x 1 core. Repeat bx 07/2019 - Negative. Prostate MRI [facility] - Prostate volume 29mL. No evidence of high-grade prostate malignancy or local mets. TRUS/bx 11/16/22 - Path showed Riesel 6 (3+3), grade group 1, in one [...] Sg Gomes, URL [facility] [address] [place] [phone] Additional Instructions: 6 mos w/ PSA Patient [...] Dipstick: Trace- (more content not included)... Normal [facility] Comment on above: Result Comment: Elec tronically Signed By: Sg ACOSTA MD\.br\Date and Time Signed: 08/05/23 16:39 EST\.br\Electronically Co-Signed By: Jewels Victoria\.br\Date and Time Co-Signed: 08/05/23 16:37 EST Lab Reportson 07-19-2023 Lab Reports [id number]# 1.00TIFF Normal [facility] US venous duplex LE LTon US venous duplex LE LT [facility] [place] [address] Ultrasound Report Signed Patient: Darius Valladares MR#: [id number] 948 : 1960 Acct:[id number] Age/Sex: 62 / M ADM Date: 10/11/22 Loc: [facility] Room: Type: [facility] Attending Dr: Gertrudis Holloway HYDRAULIC RIVETER-C Ordering Provider: Gertrudis Holloway APRN Date of [...] Joe Langston MD10/15/2022 3:13 PM Dictation Location: [place] [address] Tech: Karol Mullen Transcribed By: CHELSEA 10/15/22 1513 Dictated By: Joe Langston MD 10/15/22 1511 Signed By: 10/15/22 1513 Normal [facility] Creatinine (Bld) [Mass/Vol]O rdered By: Sg Acosta on 10-01-2022 Creatinine [Mass/Vol] 1.1 mg/dL 0.6-1.3 [facility] Comment on above: ER/ESD physician is notified/shown all ISTAT results.Critical values may be confirmed by laboratory testing ifdeemed necessary by ER attending doctor. MR prostate wo/w conon 10-01 MR prostate wo/w con [facility] [place] [address] [place] [address] MRI Report Signed Patient: Darius Valladares MR#: [id number] 948 : 1960 Acct:[id number] Age/Sex: 62 / M ADM Date: 10/01/22 Loc: Room: Type: [facility] Attending Dr: Sg Acosta MD Copies to: [...] Flowers Jr., D.O.10/01/2022 3:00 PM Dictation Location: [place] [address] Transcribed By: [facility] 10/01/22 1500 Dictated By: Florentin Flowers Jr, DO 10/01/22 1447 Signed By: 10/01/22 1500 [facility] [place] US venous duplex LE RTon US venous duplex LE RT [facility] Main [place] [id number] Ultrasound Report Signed Patient: Darius Vallada[place] MR#: [id number] 948 : 1960 Acct:[id number] Age/Sex: 61 / M ADM Date: 07/16/22 Loc: [facility] Room: Type: [facility] CLI Attending Dr: Joe Langston MD Ordering [...] Joe Langston MD07/18/2022 2:24 PM Dictation Location: [place] [address] Tech: Priscilla Denney Transcribed By: CHELSEA 07/18/22 1424 Dictated By: Joe Langston MD 07/18/22 1424 Signed By: 07/18/22 1424 [facility] [place] US venous duplex LE BIon US venous duplex LE BI [address] [address] Ultrasound Report Signed Patient: Darius Valladares MR#: [id number] 948 : 1960 Acct:[id number] Age/Sex: 61 / M ADM Date: 06/06/22 Loc: [facility] Room: Type: [facility] CLI Attending Dr: Joe Langston MD Ordering [...] Joe Langston MD06/06/2022 1:09 PM Dictation Location: [facility] Tech: Darling Albarado Transcribed By: CHELSEA 06/06/22 1309 Dictated By: Joe Langston MD 06/06/22 1307 Signed By: 06/06/22 1309 [facility] Covid-19 PCR (CVDTBH)on 05-02 SARS-CoV-2 (COVID-19) RNA YOUSUF+probe Ql (Unsp spec) Not detected Normal NOT DETECTED [facility] Comment on above: Result Comment: When diagnostic [...] for this test is supported by the [place] of Health and Human Service's declaration that [...] longer be used). Performed By: #### C VDTB #### [facility] [address] [place] [address] Dr. Abe Paris INFLUENZA A AND B AGon 05-24 INFLUENZA A AG Negative Normal NEGATIVE SEE COMMENT [facility] Comment on above: Performed By: #### P TT, PT #### [facility] [address] [place] [address] Dr. Abe Paris INFLUENZA B AG Negative Normal NEGATIVE SEE COMMENT [facility] Comment on above: Performed By: #### P TT, PT #### [facility] [address] [place] [address] Dr. Abe Paris INTERNAL CONTROLS Within Normal Limits Normal Wi thin Normal Limits [facility] Comment on above: Performed By: #### P TT, PT #### [facility] [address] [place] [address] Dr. Abe Paris CBC AUTO DIFFon 02-14-2022 BASO # 0.1 103/ul Normal 0.0-0.1 [facility] Comment on above: Performed By: #### P TT, PT #### [facility] [address] [place] [address] Dr. Abe Paris Basophils/100 WBC (Bld) 0.5 % Normal 0.2-2.0 [facility] Comment on above: Performed By: #### P TT, PT #### [facility] [address] [place] [address] Dr. Abe Paris EO # 0.4 103/ul Normal 0.0-0.7 [facility] Comment on above: Performed By: #### P TT, PT #### [facility] [address] [place] [address] Dr. Abe Paris Eosinophils/100 WBC (Bld) 3.4 % Normal 0.9-7.0 [facility] Comment on above: Performed By: #### P TT, PT #### [facility] [address] [place] [address] Dr. Abe Paris Erythrocyte distribution width (RBC) [Ratio] 12.7 % Normal 11.0-15.0 [facility] Comment on above: Performed By: #### P TT, PT #### [facility] [address] [place] [address] Dr. Abe Paris Hematocrit (Bld) [Volume fraction] 41.7 % Critically low 42.0-54.0 [facility] Comment on above: Performed By: #### P TT, PT #### [facility] [address] [place] [address] Dr. Abe Paris Hemoglobin (Bld) [Mass/Vol] 14.2 g/dL Normal 14.0-18.0 [facility] Comment on above: Performed By: #### P TT, PT #### [facility] [address] [place] [address] Dr. Abe Paris IG # 0.04 10e3/ul Critically high 0.00-0.03 [facility] Comment on above: Performed By: #### P TT, PT #### [facility] [address] [place] [address] Dr. Abe Paris IG % 0.4 % Normal 0.0-0.5 [facility] Comment on above: Performed By: #### P TT, PT #### [facility] [address] [place] [address] Dr. Abe Paris LYMPH # 1.9 103/ul Normal 1.2-3.8 [facility] Comment on above: Performed By: #### P TT, PT #### [facility] [address] [place] [address] Dr. Abe Paris Lymphocytes/100 WBC (Bld) 18.2 % Critically low 20.5-60.0 [facility] Comment on above: Performed By: #### P TT, PT #### [facility] [address] [place] [address] Dr. Abe Paris MANUAL DIFF REQ NO Normal [facility] Comment on above: Performed By: #### P TT, PT #### [facility] [address] [place] [address] Dr. Abe Paris MCH (RBC) [Entitic mass] 30.3 pg Normal 25.9-34.0 [facility] Comment on above: Performed By: #### P TT, PT #### [facility] [address] [place] [address] Dr. Abe Paris MCHC (RBC) [Mass/Vol] 34.1 g/dL Normal 29.9-35.2 [facility] Comment on above: Performed By: #### P TT, PT #### [facility] [address] [place] [address] Dr. Abe Paris MCV (RBC) [Entitic vol] 88.9 fL Normal 80.0-94.0 [facility] Comment on above: Performed By: #### P TT, PT #### [facility] [address] [place] [address] Dr. Abe Paris MONO # 1.1 103/ul Critically high 0.3-0.8 [facility] Comment on above: Performed By: #### P TT, PT #### [facility] [address] [place] [address] Dr. Abe Paris Monocytes/100 WBC (Bld) 10.4 % Normal 1.7-12.0 [facility] Comment on above: Performed By: #### P TT, PT #### [facility] [address] [place] [address] Dr. Abe Paris NEUT # 6.9 103/ul Critically high 1.4-6.5 [facility] Comment on above: Performed By: #### P TT, PT #### [facility] [address] [place] [address] Dr. Abe Paris Neutrophils/100 WBC (Bld) 67.1 % Normal 43.0-75.0 [facility] Comment on above: Performed By: #### P TT, PT #### [facility] [address] [place], [place] [address] Dr. Abe Paris Platelet mean volume (Bld) [Entitic vol] 9.7 fL Normal 9.5-13.5 [facility] Comment on above: Performed By: #### P TT, PT #### [facility] [address] [place], [place] [address] Dr. Abe Paris PLT 241 103/ul Normal 150-450 [facility] Comment on above: Performed By: #### P TT, PT #### [facility] [address] [place], [place] [address] Dr. Abe Paris RBC 4.69 106/ul Critically low 4.70-6.10 [facility] Comment on above: Performed By: #### P TT, PT #### [facility] [address] [place], [place] [address] Dr. Abe Paris WBC 10.3 103/ul Normal 4.0-11.0 [facility] Comment on above: Performed By: #### P TT, PT #### [facility] [address] [place], [place] [address] ABD/PELVIS WO CONon [...] by: ALECIA ROLLINS Date: 2022-02-14 07:49 Normal [facility] D-DIMERon 02-14-2022 D-DIMER 0.19 mg/L FEU Normal <=0.59 [facility] Comment on above: Performed By: #### D DIM #### [facility] [address] [place] [address] Dr. Abe Paris D-DIMER COMMENTS SEE BELOW Normal [facility] Comment on above: Result Comment: Incr eases [...] hospitalization. Performed By: #### D DIM #### [facility] [address] [place] [address] [address] Abe Paris ER URINE PROFILEon 2 Bilirubin Ql (U) SMALL Abnormal NEGATIVE [facility] Comment on above: Performed By: #### Vaughn MIGUEL UMICRO #### [facility] [address] [place] [address] [address] Abe Paris Clarity (U) CLEAR Normal CLEAR [facility] Comment on above: Performed By: #### Vaughn MIGUEL UMICRO #### [facility] [address] [place] [address] [address] Abe Paris Color (U) YELLOW Normal YELLOW [facility] Comment on above: Performed By: #### E MYRIAM UMICRO #### [facility] [address] [place] [address] Dr. Abe AGUILAR A micrscopic examination will be performed if indicated. Normal [facility] Comment on above: Performed By: #### STEPHY MONREALRO #### [facility] [address] [place] [address] Dr. Abe Paris Glucose Ql (U) Negative Normal NEGATIVE [facility] Comment on above: Performed By: #### Vaughn MIGUEL UMICRO #### [facility] [address] [place] [address] Dr. Abe Paris Hemoglobin Ql (U) TRACE-LYSED Abnormal NEGATIVE [facility] Comment on above: Performed By: #### Vaughn MIGUEL UMICRO #### [facility] [address] [place] [address] Dr. Abe Paris Ketones Ql (U) Negative Normal NEGATIVE [facility] Comment on above: Performed By: #### Vaughn MIGUEL UMICRO #### [facility] [address] [place] [address] Dr. Abe Paris LEUKOCYTES Negative Normal NEGATIVE [facility] Comment on above: Performed By: #### Vaughn MIGUEL UMICRO #### [facility] [address] [place] [address] Dr. Abe Paris Nitrite Ql (U) Negative Normal NEGATIVE [facility] Comment on above: Performed By: #### Vaughn MIGUEL UMICRO #### [facility] [address] [place] [address] Dr. Abe Paris pH (U) 5.5 [pH] Normal 5-9 [facility] Comment on above: Performed By: #### Vaughn MIGUEL UMICRO #### [facility] [address] [place] [address] Dr. Abe Paris SPEC GRAVITY >=1.030 Abnormal 1.005-<=1.025 [facility] Comment on above: Performed By: #### Vaughn MIGUEL UMICRO #### [facility] [address] [place] [address] Dr. Abe Paris UA PROTEIN Negative Normal NEGATIVE/ TRACE [facility] Comment on above: Performed By: #### STEPHY MONREALRO #### [facility] [address] [place] [address] Dr. Abe Paris UR MICRO IND INDICATED Normal [facility] Comment on above: Performed By: #### E STEPHY MIGUELRO #### [facility] [address] [place] [address] Dr. Abe Paris Urobilinogen Qn (U) 0.2 {Scott'U}/dL Normal 0.2 - 1. 0 [facility] Comment on above: Performed By: #### STEPHY MONREALRO #### [facility] [address] [place] [address] Dr. Abe Paris PROF 14(COMP METB)on 022 Albumin [Mass/Vol] 3.7 g/dL Normal 3.4-5.0 [facility] Comment on above: Performed By: #### Iván OVERTON, CMP #### [facility] [address] [place] [address] Dr. Abe Paris Albumin/Globulin [Mass ratio] 1.4 {ratio} Normal [facility] Comment on above: Performed By: #### H TIAN, CMP #### [facility] [address] [place] [address] Dr. Abe Paris ALP [Catalytic activity/Vol] 81 U/L Normal 46-116 [facility] Comment on above: Performed By: #### Iván OVERTON, CMP #### [facility] [address] [place] [address] Dr. Abe Paris ALT [Catalytic activity/Vol] 20 U/L Normal 16-63 [facility] Comment on above: Performed By: #### H TIAN, CMP #### [facility] [address] [place] [address] Dr. Abe Paris Anion gap [Moles/Vol] 14.4 mmol/L Normal [facility] Comment on above: Performed By: #### H TIAN, CMP #### [facility] [facility] [address] [place] [address] Dr. Abe Paris AST [Catalytic activity/Vol] 10 U/L Critically low 15-37 [facility] Comment on above: Performed By: #### H STROPN, CMP #### [facility] [address] [place] [address] Dr. Abe Paris Bilirubin [Mass/Vol] 0.6 mg/dL Normal 0.2-1.0 [facility] Comment on above: Performed By: #### H STROPN, CMP #### [facility] [address] [place] [address] Dr. Abe Paris Calcium [Mass/Vol] 8.7 mg/dL Normal 8.5-10.1 [facility] Comment on above: Performed By: #### H STROPN, CMP #### [facility] [address] [place] [address] Dr. Abe Paris Chloride [Moles/Vol] 105 mmol/L Normal 98-107 [facility] Comment on above: Performed By: #### H STROPN, CMP #### [facility] [address] [place] [address] Dr. Abe Paris CO2 [Moles/Vol] 24.4 mmol/L Normal 21.0-32.0 [facility] Comment on above: Performed By: #### H STROPN, CMP #### [facility] [address] [place] [address] Dr. Abe Paris Creatinine [Mass/Vol] 1.07 mg/dL Normal 0.70-1.30 [facility] Comment on above: Performed By: #### H STROPN, CMP #### [facility] [address] [place] [address] Dr. Abe Paris EGFR-AF VENEZUELAN >60 Normal >=60 [facility] Comment on above: Performed By: #### H STROPN, CMP #### [facility] [address] [place] [address] Dr. Abe Paris EGFR-NON AF VENEZUELAN >60 Normal >=60 [facility] Comment on above: Performed By: #### H STROPN, CMP #### [facility] [address] [place] [address] Dr. Abe Paris Globulin (S) [Mass/Vol] 2.7 g/dL Normal [facility] Comment on above: Performed By: #### H TIAN, CMP #### [facility] [address] [place] [address] Dr. Abe Paris Glucose [Mass/Vol] 108 mg/dL Critically high 74-106 [facility] Comment on above: Performed By: #### H TIAN, CMP #### [facility] [address] [place] [address] Dr. Abe Paris Potassium [Moles/Vol] 3.8 mmol/L Normal 3.5-5.1 [facility] Comment on above: Performed By: #### H TIAN, CMP #### [facility] [address] [place] [address] Dr. Abe Paris Protein [Mass/Vol] 6.4 g/dL Normal 6.4-8.2 [facility] Comment on above: Performed By: #### H TIAN, CMP #### [facility] [address] [place] [address] Dr. Abe Paris Sodium [Moles/Vol] 140 mmol/L Normal 136-145 [facility] Comment on above: Performed By: #### H TIAN, CMP #### [facility] [address] [place] [address] Dr. Abe Paris Urea nitrogen [Mass/Vol] 15.0 mg/dL Normal 7.0-18.0 [facility] Comment on above: Performed By: #### H TIAN, CMP #### [facility] [address] [place] [address] Dr. Abe Paris Urea nitrogen/Creatinine [Mass ratio] 14.0 mg/mg Normal [facility] Comment on above: Performed By: #### H TIAN, CMP #### [facility] [address] [place] [address] Dr. Abe Paris PROTIMEon 02-14-2022 INR Coag (PPP) [Relative time] 1.03 {INR} Normal [facility] Comment on above: Performed By: #### P TT, PT #### [facility] [address] [place] [address] Dr. Abe Paris INR GUIDELINES SEE BELOW Normal [facility] Comment on above: Result Comment: ISHAAN RED INR: 2.0 - 3.0 CONDITIONS NOT LISTED BELOW 2.5 - 3.5 FOR PROSTHETIC HEART VALVE REPLACEMENT 2.5 - 3.5 RECURRENT THROMBOSIS Performed By: #### P TT, PT #### [facility] [address] [place] [address] Dr. Abe Paris PT Coag (PPP) [Time] 11.1 s Normal 9.0-11.6 [facility] Comment on above: Performed By: #### P TT, PT #### [facility] [address] [place] [address] Dr. Abe Paris PTTon 02-14-2022 aPTT Coag (Bld) [Time] 28.1 s Normal 22.3-36.2 [facility] Comment on above: Performed By: #### P TT, PT #### [facility] [address] [place] [address] Dr. Abe Paris TROPONIN, HIGH SENSITIVITYon 02-14-2022 HSTROP 5.8 pg/mL Normal 4.0-76.1 [facility] Comment on above: Result Comment: CUT- OFF POINTS HAVE BEEN ESTABLISHED BASED ON THE FOURTH UNIVERSAL DEFINITIONS OF MYOCARDIAL INFARCTION. THE UPPER REFERENCE LIMIT (URL) OF TROPONIN, DEFINED THE 99TH PERCENTILE OF cTnI DISTRIBUTION IN A REFERENCE POPULATION, HAS BEEN CONFIRMED THE DECISION THRESHOLD FOR [place] DIAGNOSIS. Performed By: #### H STROPN, CMP #### [facility] [address] [place] [address] Dr. Abe Paris URINE MICROSCOPIC ONLYon BACTERIA NONE SEEN Normal NONE SEEN [facility] Comment on above: Performed By: #### E SKYLA MIGUEL #### [facility] [address] [place] [address] Dr. Abe Paris Bacteria identified Cx Nom (U) NOT INDICATED Normal [facility] Comment on above: Performed By: #### E MYRIAM UMICRO #### [facility] [address] [place] [address] Dr. Abe Paris CAST NONE SEEN Normal NONE SEEN [facility] Comment on above: Performed By: #### E RUR, UMICRO #### [facility] [address] [address] [address] Abe Paris Crystals LM Nom (Urine sed) NONE SEEN Normal NONE SEEN [facility] Comment on above: Performed By: #### E RUR, UMICRO #### [facility] [address] [address] [address] Abe Paris Epithelial cells LM Ql (Urine sed) FEW Abnormal NONE SEEN /RARE [facility] Comment on above: Performed By: #### E RUR, UMICRO #### [facility] [address] [address] [address] Abe Paris MUCOUS NONE SEEN Normal NONE SEEN [facility] Comment on above: Performed By: #### E RUR, UMICRO #### [facility] [address] [place] [address] Dr. Abe Paris RBC 2-5 Abnormal 0-2 [facility] Comment on above: Performed By: #### E RUR, UMICRO #### [facility] [address] [address] [address] Abe Paris WBC NONE SEEN Normal NONE SEEN [facility] Comment on above: Performed By: #### E RUR, UMICRO #### [facility] [address] [place] [address] Dr. Abe Paris XR CHEST 1 Von [...] by: ALECIA ROLLINS Date: 2022-02-14 07:05 Normal [facility] Vital Signs Date Time Vital Sign Value Performing Clinician Facility 04-13-2024 14:43-0400 Blood Pressure Location Sg ACOSTA [facility] 04-13-2024 14:43-0400 Diastolic blood pressure 70 mm[Hg] Sg ACOSTA [facility] 04-13-2024 14:43-0400 Heart rate 112 /min Sg ACOSTA [facility] 04-13-2024 14:43-0400 Systolic blood pressure 124 mm[Hg] Sg ACOSTA [facility] 08-05-2023 15:53-0500 Blood Pressure Location Sg ACOSTA [facility] 08-05-2023 15:53-0500 Diastolic blood pressure 88 mm[Hg] Sg ACOSTA [facility] 08-05-2023 15:53-0500 Heart rate 82 /min Sg ACOSTA [facility] 08-05-2023 15:53-0500 Respiratory rate 16 /min Sg ACOSTA [facility] 08-05-2023 15:53-0500 Systolic blood pressure 134 mm[Hg] Sg ACOSTA [facility] 11-23-2022 11:28-0400 Blood Pressure Location Sg ACOSTA [facility] 11-23-2022 11:28-0400 Diastolic blood pressure 80 mm[Hg] Sg ACOSTA [facility] 11-23-2022 11:28-0400 Heart rate 68 /min Sg ACOSTA [facility] 11-23-2022 11:28-0400 Respiratory rate 16 /min Sg ACOSTA [facility] 11-23-2022 11:28-0400 Systolic blood pressure 130 mm[Hg] Sg ACOSTA [facility] 10-31-2022 12:45-0400 Body height 179.07 cm Gertrudis Holloway Other [facility] Other 10-31-2022 12:45-0400 Body mass index (BMI) [Ratio] 31.54 kg/m2 Gertrudis Holloway Other [facility] Other 10-31-2022 12:45-0400 Body temperature 97.8 [degF] Gertrudis Holloway Other [facility] Other 10-31-2022 12:45-0400 Body weight 101.15 kg Gertrudis Jewel Other [facility] Other 10-31-2022 12:45-0400 Diastolic blood pressure 68 mm[Hg] Gertrudis Holloway Other [facility] Other 10-31-2022 12:45-0400 SaO2% (BldA) [Mass fraction] 98 % Gertrudis Holloway Other [facility] Other 10-31-2022 12:45-0400 Systolic blood pressure 112 mm[Hg] Gertrudis Holloway Other [facility] Other 10-01-2022 10:25-0400 Body height 177.8 cm DO [employer] Work Phone: [facility] 10-01-2022 10:25-0400 Body weight 100.69 kg DO [employer] Work Phone: [facility] 06-06-2022 11:00-0500 Body height 179.07 cm Gertrudis Holloway Other [facility] Other 06-06-2022 11:00-0500 Body mass index (BMI) [Ratio] 31.54 kg/m2 Gertrudis Keeosmansoledad Other [facility] Other 06-06-2022 11:00-0500 Body temperature 97.8 [degF] Gertrudis Keeladan Other [facility] Other 06-06-2022 11:00-0500 Body weight 101.15 kg Gertrudis Holloway Other [facility] Other 06-06-2022 11:00-0500 Diastolic blood pressure 68 mm[Hg] Gertrudis Keeladan Other [facility] Other 06-06-2022 11:00-0500 SaO2% (BldA) [Mass fraction] 96 % Gertrudis Keeladan Other [facility] Other 06-06-2022 11:00-0500 Systolic blood pressure 110 mm[Hg] Gertrudis Keeladan Other [facility] Other Encounters Encounter Date Encounter Type Care Provider Facility Start: 11-12-2024 ambulatory Clifford Doss Facility :[facility] Start: 10-16-2024 ambulatory Sg Simons ty:JAY Valles Start: 05-14-2024 End: 05-14-2024 ambulatory Clifford Doss Facility:[facility] [place] [facility] Start: 04-13-2024 End: 04-13-2024 ambulatory Sgdylan ACOSTA Facility:[facility] Start: 04-13-2024 End: 04-13-2024 Patient encounter procedure Sgdylan ACOSTA [facility] Start: 11-12-2023 End: 11-12-2023 Lab Drop off Clifford Doss [facility] Start: 11-12-2023 End: 11-12-2023 ambulatory Clifford D[place] Start: 09-30-2023 ambulatory Clifford Doss Facility:[facility] Start: 08-12-2023 End: 08-12-2023 ambulatory Clifford Doss Facility:[facility] [place] [facility] Start: 08-05-2023 End: 08-05-2023 ambulatory Sg Mireya [facility]STA [facility] Start: 08-05-2023 End: 08-05-2023 Patient encounter procedure Sg ACOSTA [facility] Start: 11-23-2022 End: 11-23-2022 Patient encounter procedure Sg ACOSTA [facility] Start: 10-31-2022 End: 10-31-2022 ambulatory Gertrudis Holloway Other [facility] Other Start: 10-31-2022 Patient encounter procedure Gertrudis Holloway [facility] Start: 10-11-2022 End: 10-11-2022 ambulatory Gertrudis Holloway Facility:[facility] Start: 10-11-2022 End: 10-11-2022 ambulatory DO Jonh House Work Phone: [facility] Work Phone: Start: 10-11-2022 End: 10-11-2022 Patient encounter procedure DO Jonh House Work Phone: [facility] Start: 10-03-2022 (EVLT) EVLT saphenou s vein ablation Joe Langston [facility] Vascular Surgery Start: 10-03-2022 End: 10-03-2022 ambulatory Joe Langston Other [facility] Other Start: 10-01-2022 End: 10-01-2022 ambulatory Sg Acosta Facility:[facility] Start: 10-01-2022 End: 10-01-2022 ambulatory DO Jonh House Work Phone: [facility] Work Phone: Start: 10-01-2022 End: 10-01-2022 Patient encounter procedure DO Jonh House Work Phone: [facility] [place] Work Phone: Start: 08-27-2022 End: 08-28-2022 ambulatory ZENAIDA ACUNA Facility: Start: 07-16-2022 End: 07-16-2022 ambulatory Joe Langston Facility:[facility] Start: 07-16-2022 End: 07-16-2022 ambulatory DO Jonh House Work Phone: [facility] Work Phone: Start: 07-16-2022 End: 07-16-2022 Patient encounter procedure DO Jonh House Work Phone: [facility] Start: 07-11-2022 (EVLT) EVLT saphenou s vein ablation Joe Langston [facility] Vascular Surgery Start: 07-11-2022 End: 07-11-2022 ambulatory Joe Langston Other [facility] Other Start: 06-06-2022 Follow-up encounter Gertrudis Ruttino [facility] Start: 06-06-2022 End: 06-06-2022 ambulatory DO [employer] Work Phone: [facility] [employer] Other Start: 06-06-2022 End: 06-06-2022 Patient encounter procedure DO [employer] Work Phone: [facility] Start: 05-24-2022 End: 05-24-[address] KRISHNA MORALES Facility:[facility] Start: 02-14-2022 End: 02-14-[address] RKISHNA MORALES Facility:[facility] Start: 11-05-2017 End: 11-06-2017 Ambulatory DEFAULT PHYSICIAN Facility:[facility] Procedures Date Procedure Procedure Detail Performing Clinician Start: 11-16-2022 Transrectal biopsy o f prostate using ultrasound guidance [employer] Start: 10-01-2022 MR prostate wo/w con DO [employer] Work Phone: Start: 08-27-[address] KRISHNA FREDERICK Comment on above: Performed By: #### P TT, PT #### [facility] [address] [place] [address] Dr. Abe Paris Start: 07-16-2022 Duplex scan of lower limb veins DO [employer] Work Phone: Start: 06-06-2022 Duplex scan of lower limb veins DO [employer] Work Phone: Start: 07-01-2019 Transrectal biopsy o f prostate using ultrasound guidance [employer] Start: 07-23-2018 Transrectal biopsy o f prostate using ultrasound guidance [employer] Procedure on finger SgOptyn Vasectomy [employer] Plan of Treatment Date Care Activity Detail Author Start: 10-11-2022 Duplex scan of lower limb veins US venous duplex LE LT [facility] Start: 10-11-2022 US Lower extremity v ein - left [facility] Start: 07-16-2022 Duplex scan of lower limb veins US venous duplex LE RT [facility] Start: 07-16-2022 US Lower extremity v ein - right [facility] Immunizations Immunization Date Immunization Notes Care Provider Mervin andrews 06-22-2021 SARS-CoV-2 (COVID-19 ) mRNA BNT-162b2 vax Sg ACOSTA [facility] 11-08-2020 SARS-CoV-2 (COVID-19 ) mRNA BNT-162b2 vax Sg ACOSTA [facility] 10-20-2020 SARS-CoV-2 (COVID-19 ) mRNA BNT-162b2 vax Sg ACOSTA [facility] 07-01-2020 SARS-CoV-2 (COVID-19 ) mRNA BNT-162b2 vax Sg ACOSTA [facility] Comment on above: Result Comment: pt d oes not have his card and doesn't remember dates of vaccination Payers Date Payer Category Payer Unknown [id number] 2022 Self-pay [id number] 1960 Unknown [id number] 2.16.84 [id number] 1960 Unknown [id number] 2.16.84 [id number] 1961 Unknown [id number] 2.16.84 [id number] 1961 Unknown [id number] 2.16.8 [id number] 1961 Unknown [id number] 2.16.8 [id number] 1961 Unknown [id number] 2.16.8 40.1.361473.3.579.2.727 1961 Unknown [id number] 2.16.8 40.1.345997.3.579.2.727 1961 Unknown [id number] 2.16.8 40.1.093289.3.579.2.727 1961 Unknown [id number] 2.16.8 40.1.067242.3.579.2.727 1961 Unknown [id number] 2.16.8 40.1.819968.3.579.2.727 1961 Unknown [id number] 2.16.8 40.1.861768.3.579.2.727 1959 Unknown [id number] 2.16. [id number] 1959 Unknown [id number] Unknown Unknown [id number] 2.16.8 40.1.909787.3.579.2.531 Unknown [id number] 2.16.8 40.1.459588.3.579.2.531 Unknown [id number] 2.16.8 40.1.700201.3.579.2.531 Unknown [id number] 2.16.8 40.1.786196.3.579.2.531 Social History Date Type Detail Facility Unknown if ever smoked [facility] [id number] Other Sex Assigned At [facility] Start: 07-24-2019 End: 04-13-2024 Tobacco smoking status NHIS Ex-smoker (finding) [facility] Start: 1960 Sex Assigned At Male F [facility] Tobacco smoking status Smokeless tobacco user within last [address] [facility] Functional Status Date Assessment Result Facility 04-13-2024 Functional Status N/A [facility] 08-05-2023 Functional Status N/A [facility] 11-23-2022 Functional Status N/A [facility] Clinical Notes 06-06-2022 to 04-13-2024 Note Date & Type Note Facility 04-13-2024 Hospital Discharge instructions Patient Education 04/13/2024 15:34:17 Prostate Cancer Screening Prostate Cancer Screening Prostate cancer screening is testing that is done to check for the presence of prostate cancer in men. The prostate gland is a walnut-sized gland that is located below the bladder and in front of the rectum in males. The function of the prostate is to add fluid to semen during ejaculation. Prostate cancer is one of the most common types of cancer in men. Who should have prostate cancer screening? Screening recommendations vary based on age and other risk factors, as well as between the professional organizations who make the recommendations. In general, screening is recommended if: You are age 50 to 70 and have an average risk for prostate cancer. You should talk with your health care provider about your need for screening and how often screening should be done. Because most prostate cancers are slow growing and will not cause , screening in this age group is generally reserved for men who have a 10- to 15-year life expectancy. You are younger than age 50, and you have these risk factors: ?Having a father, brother, or uncle who has been diagnosed with prostate cancer. The risk is higher if your family member's cancer occurred at an early age or if you have multiple family members with prostate cancer at an early age. ?Being a male who is Black or is of [place] or sub-Saharan descent. In general, screening is not recommended if: You are younger than age 40. You are between the ages of 40 and 49 and you have no risk factors. You are 70 years of age or older. At this age, the risks that screening can cause are greater than the benefits that it may provide. If you are at high risk for prostate cancer, your health care provider may recommend that you have screenings more often or that you start screening at a younger age. How is screening for prostate cancer done? The recommended prostate cancer screening test is a blood test called the prostate-specific antigen (PSA) test. PSA is a protein that is made in the prostate. As you age, your prostate naturally produces more PSA. Abnormally high PSA levels may be caused by: Prostate cancer. An enlarged prostate that is not caused by cancer (benign prostatic hyperplasia, or BPH). This condition is very common in older men. A prostate gland infection (prostatitis) or urinary tract infection. Certain medicines such as male hormones (like testosterone) or other medicines that raise testosterone levels. A rectal exam may be done as part of prostate cancer screening to help provide information about the size of your prostate gland. When a rectal exam is performed, it should be done after the PSA level is drawn to avoid any effect on the results. Depending on the PSA results, you may need more tests, such as: A physical exam to check the size of your prostate gland, if not done as part of screening. Blood and imaging tests. A procedure to remove tissue samples from your prostate gland for testing (biopsy). This is the only way to know for certain if you have prostate cancer. What are the benefits of prostate cancer screening? Screening can help to identify cancer at an early stage, before symptoms start and when the cancer can be treated more easily. There is a small chance that screening may lower your risk of dying from prostate cancer. The chance is small because prostate cancer is a slow-growing cancer, and most men with prostate cancer from a different cause. What are the risks of prostate cancer screening? The main risk of prostate cancer screening is diagnosing and treating prostate cancer that would never have caused any symptoms or problems. This is called overdiagnosisand overtreatment. PSA screening cannot tell you if your PSA is high due to cancer or a different cause. A prostate biopsy is the only procedure to diagnose prostate cancer. Even the results of a biopsy may not tell you if your cancer needs to be treated. Slow-growing prostate cancer may not need any treatment other than monitoring, so diagnosing and treating it may cause unnecessary stress or other side effects. Questions to ask your health care provider When should I start prostate cancer screening? What is my risk for prostate cancer? How often do I need screening? What type of screening tests do I need? How do I get my test results? What do my results mean? Do I need treatment? Where to find more information The [employer]: www.cancer.org [employer]: www.auanet.org Contact a health care provider if: You have difficulty urinating. You have pain when you urinate or ejaculate. You have blood in your urine or semen. You have pain in your back or in the area of your prostate. Summary Prostate cancer is a common type of cancer in men. The prostate gland is located below the bladder and in front of the rectum. This gland adds fluid to semen during ejaculation. Prostate cancer screening may identify cancer at an early stage, when the cancer can be treated more easily and is less likely to have spread to other areas of the body. The prostate-specific antigen (PSA) test is the recommended screening test for prostate cancer, but it has associated risks. Discuss the risks and benefits of prostate cancer screening with your health care provider. If you are age 70 or older, the risks that screening can cause are greater than the benefits that it may provide. This information is not intended to replace advice given to you by your health care provider. Make sure you discuss any questions you have with your health care provider. Document Revised: 12/11/2021 Document Reviewed: 12/11/2021 [employer] Patient Education 2023 [employer]. Follow Up Care 08/05/2023 16:40:18 With:CHEYENNE BAR, Sg Gomes, URL Address: [facility] [address] [place] [address]- [phone] When: Unknown Comments:6 mos w/ PSA [facility] 04-13-2024 Note Patient Education Oncology Prostate Cancer Screening Prostate cancer screening is testing that is done to check for the presence of prostate cancer in men. The prostate gland is a walnut-sized gland that is located below the bladder and in front of the rectum in males. The function of the prostate is to add fluid to semen during ejaculation. Prostate cancer is one of the most common types of cancer in men. Who should have prostate cancer screening? Screening recommendations vary based on age and other risk factors, as well as between the professional organizations who make the recommendations. In general, screening is recommended if: ? You are age 50 to 70 and have an average risk for prostate cancer. You should talk with your health care provider about your need for screening and how often screening should be done. Because most prostate cancers are slow growing and will not cause , screening in this age group is generally reserved for men who have a 10- to 15-year life expectancy. ? You are younger than age 50, and you have these risk factors: ? Having a father, brother, or uncle who has been diagnosed with prostate cancer. The risk is higher if your family member's cancer occurred at an early age or if you have multiple family members with prostate cancer at an early age. ? Being a male who is Black or is of [place] or sub-Saharan descent. In general, screening is not recommended if: ? You are younger than age 40. ? You are between the ages of 40 and 49 and you have no risk factors. ? You are 70 years of age or older. At this age, the risks that screening can cause are greater than the benefits that it may provide. If you are at high risk for prostate cancer, your health care provider may recommend that you have screenings more often or that you start screening at a younger age. How is screening for prostate cancer done? The recommended prostate cancer screening test is a blood test called the prostate-specific antigen (PSA) test. PSA is a protein that is made in the prostate. As you age, your prostate naturally produces more PSA. Abnormally high PSA levels may be caused by: ? Prostate cancer. ? An enlarged prostate that is not caused by cancer (benign prostatic hyperplasia, or BPH). This condition is very common in older men. ? A prostate gland infection (prostatitis) or urinary tract infection. ? Certain medicines such as male hormones (like testosterone) or other medicines that raise testosterone levels. A rectal exam may be done as part of prostate cancer screening to help provide information about the size of your prostate gland. When a rectal exam is performed, it should be done after the PSA level is drawn to avoid any effect on the results. Depending on the PSA results, you may need more tests, such as: ? A physical exam to check the size of your prostate gland, if not done as part of screening. ? Blood and imaging tests. ? A procedure to remove tissue samples from your prostate gland for testing (biopsy). This is the only way to know for certain if you have prostate cancer. What are the benefits of prostate cancer screening? ? Screening can help to identify cancer at an early stage, before symptoms start and when the cancer can be treated more easily. ? There is a small chance that screening may lower your risk of dying from prostate cancer. The chance is small because prostate cancer is a slow-growing cancer, and most men with prostate cancer from a different cause. What are the risks of prostate cancer screening? The main risk of prostate cancer screening is diagnosing and treating prostate cancer that would never have caused any symptoms or problems. This is called overdiagnosisand overtreatment. PSA screening cannot tell you if your PSA is high due to cancer or a different cause. A prostate biopsy is the only procedure to diagnose prostate cancer. Even the results of a biopsy may not tell you if your cancer needs to be treated. Slow-growing prostate cancer may not need any treatment other than monitoring, so diagnosing and treating it may cause unnecessary stress or other side effects. Questions to ask your health care provider ? When should I start prostate cancer screening? ? What is my risk for prostate cancer? ? How often do I need screening? ? What type of screening tests do I need? ? How do I get my test results? ? What do my results mean? ? Do I need treatment? Where to find more information ? The [employer]: www.cancer.org ? [employer]: www.auanet.org Contact a health care provider if: ? You have difficulty urinating. ? You have pain when you urinate or ejaculate. ? You have blood in your urine or semen. ? You have pain in your back or in the area of your prostate. Summary ? Prostate cancer is a common type of cancer in men. The prostate gland is located below the bladder and in front of the rectum. (more content not included)... [facility] 08-05-2023 Hospital Discharge instructions Patient Education 08/05/2023 16:26:40 Prostate Cancer [...] the likelihood that the cancer will spread. Riesel 6 or lower: This indicates that the cancer cells look similar to normal prostate cells (well differentiated). Riesel 7: This indicates that the cancer cells [...] stress of having cancer. General instructions Take vfdj-imd-spwbbjz and prescription medicines only as told by your health care provider. If you have to go to the hospital, notify your cancer specialist (oncologist). Keep all follow-up visits. This is important. Where to find more information [employer]: www.cancer.org Indian Society of Clinical Oncology: www.cancer.net National Cancer [place]: www.cancer.gov Contact a health care provider if: [...] provider. Document Revised: 09/13/2021 Document Reviewed: 09/13/2021 [employer] Patient Education 2022 [employer]. Follow Up Care 11/23/2022 12:35:31 With:CHEYENNE BAR, Sg Gomes, URL Address: [facility] [address] , [place] [address]- [phone] When: Unknown Comments:6 mos w/ PSA [facility] [place] 11-23-2022 Hospital Discharge instructions Patient Education 11/23/2022 12:20:43 Prostate Cancer [...] the likelihood that the cancer will spread. Riesel 6 or lower: This indicates that the cancer cells look similar to normal prostate cells (well differentiated). Riesel 7: This indicates that the cancer cells look somewhat similar to normal prostate cells (moderately differentiated). Riesel 8, 9, or 10: This indicates that [...] stress of having cancer. General instructions Take qokv-jdp-cgveofs and prescription medicines only as told by your health care provider. If you have to go to the hospital, notify your cancer specialist (oncologist). Keep all follow-up visits. This is important. Where to find more information [employer] Society: www.cancer.org Indian Society of Clinical Oncology: www.cancer.net National Cancer [place]: www.cancer.gov Contact a health care provider if: [...] provider. Document Revised: 09/13/2021 Document Reviewed: 09/13/2021 [employer] Patient Education 2022 [employer]. Follow Up Care 10/09/2022 11:54:22 With:CHEYENNE BAR, Sg Gomes, URL Address: [facility] [address], [place] [address]- When: Unknown [facility] 10-31-2022 Evaluation note Encounter Date Diagnosis Assessment [...] of both lower extremities (ICD-10 - I83.893) [facility] Other 12-07-2022 Evaluation note* Encounter Date Diagnosis [...] with this plan, and denies any questions. [employer] Other Evaluation + Plan note Future Appointments Appointment Date:07/29/2023 01:15:00 PM Scheduled Provider:Sg AOCSTA MD Location:[facility] Appointment Type:URO Office Visit Diagnostic Tests Pending * PSA Total 11/23/22 [facility] evaluation + Plan note Future Appointments Appointment Date:02/03/2024 11:15:00 AM Scheduled Provider:Sg ACOSTA MD Location:[facility] Appointment Type:URO Office Visit Diagnostic Tests Pending * PSA Total 08/05/23 [facility] evaluation + Plan note Future Appointments Appointment Date:02/03/2024 11:15:00 AM Scheduled Provider:Sg ACOSTA MD Location:[facility] Appointment Type:URO Office Visit Appointment Date:05/14/2024 03:30:00 PM Scheduled Provider:Clifford Doss MD Location:[facility] Future Appointments Appointment Date:05/14/2024 03:30:00 PM Scheduled Provider:Clifford Doss MD Location:[facility] Appointment Type:FM Open Appointment Date:10/16/2024 10:15:00 AM Scheduled Provider:Sg ACOSTA MD Location:[facility] Appointment Type:URO Office Visit Diagnostic Tests Pending * PSA Total 04/13/24 [facility] evallhlhuh noteNo assessment information available [facility] Work Phone: [facility]No [facility] [employer] Other History general Narrative - Reported* Type Description Date Medical History Hypertension Medical History Prostate enlargement Medical History aneurysm x's 5 in chest no surge ry just medicated. Medical History seasonal allergies Surgical History Thumb urgery Hospitalization History chest aneurysm 5 2017 [facility] Other Hospital course Narrative No data available for this section [facility] Hospital Discharge instructions No data available for this section [facility] No data available for this section [facility] Summary Purpose Family History No Family History [...] section and content) DATE CREATED AUTHOR 12/19/2017 [facility] DATE CREATED AUTHOR AUTHOR'S ORGANIZ ATION 09/01/2022 [facility] DATE CREATED AUTHOR AUTHOR'S ORGANIZ ATION 10/24/2022 [facility] DATE CREATED AUTHOR AUTHOR'S ORGANIZ ATION 05/16/2024 [facility] REASON FOR VISIT (unrecogniz ed section and content) 4 WK FOLLOW UP; FULL FUNCTIO NAL VENOUS DUPLEX BOTH LEGS 9AVENASEAL WORSE LEG FIRST-RIGHTVENASEAL LEFT LEG4 WK S/P VENASEAL LEFT LEG Care Teams (unrecognized sec tion and content) Team Status: Inactive Member Role Status Dates Jonh Nice DO Primary Care Provider Active Joe Langston [...] BE BASED ON THE PRIMARY CLINICAL RECORDS. [facility] [employer] [facility]. provides no warranty or guarantee of the accuracy or completeness of information in this document.
[2024-09-30 13:52] LABS: Prostate Specific Antigen Dx 2.06 ng/mL (<=4.00)
== END 2024-09-30 10:10 | disposition home or self-care (01) ==
LOC: LAB 10:11
PROVIDERS: PCP Family Medicine; Visit Provider Urology
DX: C61 Malignant neoplasm of prostate (principal)
CPT/HCPCS: 36415; 84153